=== PATIENT | male | born 1930 | race Caucasian/White ===

== ENCOUNTER 2018-09-30 22:40 | Emergency (ER) | payer MEDICARE ==
[2018-09-30] MEDS ORDERED: SODIUM CHLORIDE 0.9% 100ML 100 ML IVPB ONE (22:50)
[2018-09-30] MEDS ORDERED: diltiaZEM DRIP 125 MG/25 ML VIAL IVPB ONE (22:50)
[2018-09-30] MEDS ORDERED: VECURONIUM BROMIDE 10 MG VIAL IV ONE ×2 (22:55→23:40)
[2018-09-30] MEDS ORDERED: WATER FOR INJ 10 ML VIAL INJ ONE (22:56)
[2018-09-30] MEDS ORDERED: diltiaZEM DRIP 125 MG in SODIUM CHLORIDE 0.9% 100ML 100 ML IVPB SCH (23:00)
--- NOTE | 2018-09-30 23:04 | RAD ---
EXAM DESCRIPTION: Chest,1 View CLINICAL HISTORY: 87 years Male cardiac arrest COMPARISON: None. FINDINGS: Cardiac enlargement. Endotracheal tube above the level the daya. There are bilateral infiltrates suggesting edema. Small effusions may be present. Linear area over the mid chest on the left may reflect a skinfold. This is not thought to represent a pneumothorax as lung markings extend beyond this. Post surgical changes with median sternotomy wires. IMPRESSION: Cardiac enlargement Areas of infiltrate bilaterally suggesting mild edema with small effusions Linear area over the left midlung field of uncertain clinical significance. 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
[2018-09-30] MEDS ORDERED: SODIUM CHLORIDE 0.9% 1000ML 1,000 ML ONE (23:18)
--- NOTE | 2018-09-30 23:18 | ED.PDOC ---
History of Present Illness - General Chief Complaint: Unresponsive Stated Complaint: post cardiac arrest Time Seen by Provider: 09/30/18 22:50 Source: EMS Exam Limitations: clinical condition - History of Present Illness Initial Comments: PT WITH DEMENTIA FOUND UNRESPONSIVE. EMS ARRIVED TO FIND PT PULSELESS. INTUBATED, CPR AND D/C CARDIOVERSION FOR VFIB. PT HAD EPI ARRIVED WITH QUAKER OF PULSE. NO FAMILY HERE, NO OLD RECORDS. Timing/Duration: other - WITNESSED Allergies/Adverse Reactions: Allergies UNOBTAINABLE Allergy (Verified 09/30/18 22:45) Review of Systems - Review of Systems Constitutional: States: see HPI EENTM: States: see HPI Respiratory: States: see HPI Cardiology: States: see HPI Gastrointestinal/Abdominal: States: see HPI Genitourinary: States: see HPI Musculoskeletal: States: see HPI Skin: States: see HPI Neurological: States: see HPI Endocrine: States: see HPI Hematologic/Lymphatic: States: see HPI Unable to Obtain Due To: dementia, intubated Past Medical History (General) - Patient Medical History Hx Dementia: Yes Family Medical History - Family History Mother Family History: Unknown Living Status: Unknown Physical Exam - Physical Exam General Appearance: Frail, Other - INTUBATED, UNRESPONSIVE Eye Exam: bilateral normal - 2MM REACTIVE Ears, Nose, Throat: normal ENT inspection, other - ETT IN PLACE Neck: non-tender, full range of motion, supple Respiratory: lungs clear, other - BETO BS WITH BAGGING. Cardiovascular/Chest: tachycardia, irregularly irregular Peripheral Pulses: radial,right: 1+, femoral,right: 1+ Gastrointestinal/Abdominal: soft, no organomegaly Extremity: non-tender, normal inspection Neurologic: other - GCS 3 Skin Exam: normal color, other - COOL Lymphatic: no adenopathy Progress - Progress Progress: 09/30/18 23:21 PT IN AFIB WITH RVR VENT RATE 170'S BP 129 GAVE CARDIZEM BOLUS NOW PULSE 117, BP 90. HAVE STARTED FLUIDS AND WILL CONTINUE W/U. FAMILY REPORTEDLY ON THE WAY FROM [place] 09/30/18 23:33 FAMILY INFORMED OF THE PATIENT'S CONDITION AND NEED FOR TRANSFER. THEY ARE DISCUSSING AMONGST THEMSELVES. 09/30/18 23:59 PULSE TACHY, BUT STABLE, STILL IN AFIB. INITIAL ABG SHOWS METABOLIC ACIDOSIS, REPEAT SHOWS NORMALIZATION WILL LEAVE CURRENT VENT SETTINGS. FAMILY DESIRES TRANSFER TO . D/W Jose CHAMPAGNE ACCEPTS PT IN TRANSFER. PAGED CARDIOLOGY 10/01/18 00:13 D/W DR FERMIN, RECOMMENDS DIG FOR RATE CONTROL AND NO ANTICOAGULATION AT THIS POINT. - EKG/XRAY/CT EKG: Atrial, Fibrillation, RVR - RATE 170, LAD, , nonspecific ST T wave Chg - NAIP, NO OLD FOR COMPARISON XRAY: chest - ETT IN PLACE, IFEANYI, POST SURGICAL CHANGES IN CHEST. Departure - Departure Clinical Impression: Cardiorespiratory arrest Atrial fibrillation Qualifiers: Atrial fibrillation type: persistent Qualified Code(s): I48.1 - Persistent atrial fibrillation CAD (coronary artery disease) Qualifiers: Coronary Disease-Associated Artery/Lesion type: unspecified vessel or lesion type [place] vs. transplanted heart: [place] heart Associated angina: angina presence unspecified Qualified Code(s): I25.10 - Atherosclerotic heart disease of [place] coronary artery without angina pectoris Dementia Qualifiers: Dementia type: unspecified type Dementia behavioral disturbance: without behavioral disturbance Qualified Code(s): F03.90 - Unspecified dementia without behavioral disturbance Leukocytosis Qualifiers: Leukocytosis type: unspecified Qualified Code(s): D72.829 - Elevated white blood cell count, unspecified Time of Disposition: 00:26 Disposition: Transfer to Hospital Condition: Serious Departure Forms: ED Discharge - Pt. Copy, Patient Portal Self Enrollment Critical Care Note - Critical Care Note Total Time (mins): 85 Comments: EVENT: CARDIAO/RESP ARREST, AFIB WITH RVR FINDINGS: PULSELESS, APNEA, PULSE 170'S INTERVENTION: CPR, INTUBATION, CARDIZEM, DIGOXIN, RESP SUPPORT, CONSULTATION, ARRANGEMENT FOR TRANSFER TO TERTIARY CARE SYSTEMS AT RISK: CARDIOVASCULAR, RESP, TIME: CHARTING, 15MIN, REVIEW LAB,XRAY, EKG,OLD RECORDS, 15 MINUTES, D/W FAMILY 5 MINUTES, CONSULTATION 10 MINUTES, DIRECT PT CARE, 30 MINUTES, CHARTING, 10 MINUTES. Transfer to Outside Facility - Transfer Information Accepting Provider:: DR Jose CHAMPAGNE Accepting Facility: [facility] Reason for Transfer: ICU
[2018-09-30 23:32] VITALS: TEMP 96.4
[2018-09-30] MEDS ORDERED: CEFEPIME 2 GM in SODIUM CHL 0.9% 50ML MIN-BAG+ 50 ML IVPB ONE (23:47)
[2018-10-01] VITALS: BP 99/64
[2018-10-01] MEDS ORDERED: CEFEPIME 2 GM VIAL ONE (00:14)
[2018-10-01] MEDS ORDERED: SODIUM CHL 0.9% 50ML MIN-BAG+ 50 ML IVPB ONE (00:15)
[2018-10-01] MEDS ORDERED: DIGOXIN INJ 0.5 MG/2 ML AMP IV ONE (00:15)
[2018-10-01 00:44] VITALS: O2SAT 99
== END 2018-10-01 00:20 | disposition short-term general hospital (02) ==
LOC: ER 22:40
DX: I46.9 Cardiac arrest, cause unspecified (principal); I48.1 Persistent atrial fibrillation; I25.10 Atherosclerotic heart disease of native coronary artery without angina pectoris; F03.90 Unspecified dementia, unspecified severity, without behavioral disturbance, psychotic disturbance, mood disturbance, and anxiety; D72.829 Elevated white blood cell count, unspecified
CPT/HCPCS: 36415; 36416; 36600; 71045; 80048; 82550; 82553; 82803; 82805; 82948; 83605; 83880; 84484; 85025; 85610; 85730; 87040; 93005; 94002; 94770; A4216; J0692; J1160; J7030; J7050

== ENCOUNTER 2018-10-31 10:45 | Inpatient (IN) | payer MEDICARE ==
[2018-10-31] MEDS ORDERED: ASPIRIN (CHEWABLE) 81 MG TAB PO ONE (10:52)
--- NOTE | 2018-10-31 11:31 | ED.PDOC ---
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 He says that it was pressure like with radiation to the left arm. It has since mostly resolved but he says he still senses that it is "there". Denies associated symptoms. He has an extensive cardiac history which includes CABG, PTCA, and a cardiac arrest one month ago. Currently no other complaints. Timing/Duration: 4-6 hours Severity: moderate Improving Factors: nothing Worsening Factors: nothing Associated Symptoms: denies symptoms Allergies/Adverse Reactions: Allergies NO KNOWN ALLERGY Allergy (Verified 10/31/18 10:52) Home Medications: Ambulatory Orders Amiodarone HCl 200 mg PO BID 10/31/18 Aspirin [Aspirin Adult Low Dose] 81 mg PO DAILY 10/31/18 Atorvastatin Calcium [Lipitor] 10 mg PO DAILY 10/31/18 Clopidogrel Bisulfate 75 mg PO DAILY 10/31/18 Erythromycin (Ophth) [Erythromycin] 5 mg OP TID 10/31/18 Ferrous Sulfate 325 mg PO BID 10/31/18 Furosemide 40 mg PO DAILY 10/31/18 Metoprolol Succinate [Metoprolol Succinate ER] 25 mg PO DAILY 10/31/18 Nitroglycerin [Nitrostat] 0.4 mg SL DAILY 10/31/18 Polyethylene Glycol 3350 [Miralax] 17 gm PO DAILY PRN 10/31/18 Potassium Chloride [K-Tab] 20 meq PO DAILY 10/31/18 Review of Systems - Review of Systems Constitutional: States: no symptoms reported EENTM: States: no symptoms reported Respiratory: States: no symptoms reported Cardiology: States: see HPI Gastrointestinal/Abdominal: States: no symptoms reported Genitourinary: States: no symptoms reported Musculoskeletal: States: no symptoms reported Skin: States: no symptoms reported Neurological: States: no symptoms reported Endocrine: States: no symptoms reported Hematologic/Lymphatic: States: no symptoms reported Past Medical History (General) - Patient Medical History Hx Dementia: Yes Hx Congestive Heart Failure: - unknown Hx Diabetes: - unknown - Social History Hx Tobacco Use: No - unknown unable to obtain information Family Medical History - Family History Mother Family History: Unknown Living Status: Unknown Physical Exam - Physical Exam General Appearance: Alert Eye Exam: bilateral normal Ears, Nose, Throat: normal ENT inspection Neck: non-tender, full range of motion, supple Respiratory: lungs clear, normal breath sounds Cardiovascular/Chest: normal peripheral pulses, regular rate, rhythm, no edema Gastrointestinal/Abdominal: normal bowel sounds, non tender, soft Back Exam: normal inspection, no CVA tenderness Extremity: normal range of motion, non-tender, normal inspection Neurologic: no motor/sensory deficits, alert, normal mood/affect, oriented x 3 Skin Exam: normal color Lymphatic: no adenopathy Progress - Progress Progress: 10/31/18 15:10 Laboratory Tests 10/31/18 10/31/18 10/31/18 11:00 11:00 11:00 WBC 4.9 RBC 2.86 L Hgb 10.1 L Hct 31.3 L MCV 109.5 H MCH 35.3 H MCHC 32.3 L RDW 16.5 H Plt Count 154 MPV 9.8 Absolute Neuts (auto) 3.40 Absolute Lymphs (auto) 0.50 L Absolute Monos (auto) 0.80 Absolute Eos (auto) 0.10 Absolute Basos (auto) 0.00 Neutrophils % 69.4 Lymphocytes % 10.7 L Monocytes % 16.7 H Eosinophils % 2.2 Basophils % 1.0 Normal RBC Morphology Stain quality accept PT 10.5 INR 1.05 PTT (SP) 25.1 Sodium 138 Potassium 3.8 Chloride 101 Carbon Dioxide 27 Anion Gap 13.8 BUN 20 H Creatinine 1.82 H BUN/Creatinine Ratio 11.0 Random Glucose 99 Serum Osmolality 278.3 Calcium 8.2 L Magnesium 2.0 Total Bilirubin 1.1 H AST 17 ALT 12 Alkaline Phosphatase 132 H Creatine Kinase 35 L CK-MB (CK-2) 2.1 CK-MB (CK-2) % Not Reportable Troponin I 0.03 B-Natriuretic Peptide Serum Total Protein 6.4 Albumin 3.0 L Globulin 3.4 Albumin/Globulin Ratio 0.9 L 10/31/18 10/31/18 12:42 14:15 WBC RBC Hgb Hct MCV MCH MCHC RDW Plt Count MPV Absolute Neuts (auto) Absolute Lymphs (auto) Absolute Monos (auto) Absolute Eos (auto) Absolute Basos (auto) Neutrophils % Lymphocytes % Monocytes % Eosinophils % Basophils % Normal RBC Morphology PT INR PTT (SP) Sodium Potassium Chloride Carbon Dioxide Anion Gap BUN Creatinine BUN/Creatinine Ratio Random Glucose Serum Osmolality Calcium Magnesium Total Bilirubin AST ALT Alkaline Phosphatase Creatine Kinase CK-MB (CK-2) CK-MB (CK-2) % Troponin I 0.03 B-Natriuretic Peptide 2000.0 H* Serum Total Protein Albumin Globulin Albumin/Globulin Ratio EKG showed T wave inversions at V2-V6. These did not change with a follow up EKG in 4 hours. No previous available for comparison. Troponin x 2 negative. Patient remained pain free. He was admitted to observation. 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 Usman Zaidi admitting. 10/31/18 15:35 Departure - Departure Clinical Impression: Chest pain Disposition: Admit Patient Condition: Fair Departure Forms: ED Discharge - Pt. Copy, Patient Portal Self Enrollment Instructions: DI for Chest Pain Diet: other - as per hospitalist Activity: other - as per hospitalist Home Medications: Ambulatory Orders Amiodarone HCl 200 mg PO BID 10/31/18 Aspirin [Aspirin Adult Low Dose] 81 mg PO DAILY 10/31/18 Atorvastatin Calcium [Lipitor] 10 mg PO DAILY 10/31/18 Clopidogrel Bisulfate 75 mg PO DAILY 10/31/18 Erythromycin (Ophth) [Erythromycin] 5 mg OP TID 10/31/18 Ferrous Sulfate 325 mg PO BID 10/31/18 Furosemide 40 mg PO DAILY 10/31/18 Metoprolol Succinate [Metoprolol Succinate ER] 25 mg PO DAILY 10/31/18 Nitroglycerin [Nitrostat] 0.4 mg SL DAILY 10/31/18 Polyethylene Glycol 3350 [Miralax] 17 gm PO DAILY PRN 10/31/18 Potassium Chloride [K-Tab] 20 meq PO DAILY 10/31/18 Critical Care Note - Critical Care Note Total Time (mins): 180 Decision To Admit - Decistion To Admit Decision to Admit Reason: Medical Nature Decision to Admit Date: 10/31/18 Decision to Admit Time: 15:38
--- NOTE | 2018-10-31 11:57 | RAD ---
Portable chest INDICATION: Chest pain COMPARISON: September 30 IMPRESSION: Mild cardiomegaly without failure. Prior median sternotomy for CABG. Pleural thickening/fluid increased bibasilar. No alveolar edema. No focal consolidation. Electronically signed by: Jagjit Mello MD 10/31/2018 11:54 AM CDT
--- NOTE | 2018-10-31 16:23 | HP ---
SUPERVISING PHYSICIAN: Isaak Kincaid MD CHIEF COMPLAINT: Shortness of breath. HISTORY OF PRESENT ILLNESS: Mr. Kate is an 88 year-old male patient who has a history of a recent cardiac arrest secondary to Torsades arrhythmia in the previous month. He was treated at [facility] after he coded at [facility] on 09/30/18 and started on amiodarone after he was found to have Torsade's. He was discharged home and spent 3 weeks in [facility] and this past Saturday was discharged to [facility]. His family endorses that within a day of discharge from [facility] he started coughing a purulent looking sputum but without any fevers but was having an increase in shortness of breath and coarse breath sounds that were audible without a stethoscope. Today, the family and patient endorses that he was having some chest pains that he was describing substernal, started approximately 5 hours prior to arrival to the Emergency Room. He described it as pressure with some radiation to his left arm but his symptoms have essentially resolved prior to going to the Emergency Room. He does have a history of a previous coronary artery bypass graft and multiple stints and again, cardiac arrest within the last month. He was also reportedly on a ventilator for approximately 5 days while at [facility]. Workup in the Emergency Room showed that his CBC was showing a white count of 4,900 but his hemoglobin was 10.1, hematocrit 31.1 and RBCs indicated a macrocytosis. Platelet count was was negative. Differential was without a left shift. Coagulation studies showed normal PT/PTT. Initial chemistries showed normal electrolytes, BUN 20, creatinine 1.82, calcium 8.2, glucose 99, total bilirubin was slightly elevated at 1.1. All other liver functions were within normal limits. He had 2 sets of troponin prior to admission that were both 0.03. He had a BNP of 2,000 and his daughter endorses that since his cardiac rarest, his BNP has been hovering around 4,000 and his primary care physician, Dr. Foster, has been working with his medications and 2,000 seems to be currently his baseline where he is asymptomatic. Radiographic studies showed mild cardiomegaly without any failure with some pleural thickening and increased bibasilar presentation with no edema, no obvious focal consolidation. Vital signs showed on admission that he was afebrile there was temperature of 96, pulse 57, blood pressure 111/54, saturation 94% on 2 liters nasal cannula. Given the patient's significant underlying history, previous cardiac arrest and recent hospitalization and current symptoms, the patient is going to be admitted for rule out of acute coronary syndrome as well as concerns for developing right-sided lower pneumonia, probably healthcare acquired given that he has been in the hospital in an long-term care facility within the last month. He was admitted in stable condition. PAST MEDICAL HISTORY: 1. Coronary artery bypass graft x4 vessels in his 60s. 2. Multiple stints with a failed stint placement of LAD in the last 3 years. 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 5. Systolic congestive heart failure with ejection fraction of 25% on last echocardiogram in September on previous hospitalization status post cardiac arrest. 6. Chronic conjunctivitis bilaterally. PAST SURGICAL HISTORY: 1. Coronary artery bypass graft x4. 2. Appendectomy. 3. Femoral stent. 4. Left nephrectomy. 5. Cholecystectomy. CURRENT MEDICATIONS: 1. Potassium chloride 20 mEq daily. 2. Nitroglycerin 0.4 mg as needed. 3. Lipitor 10 mg daily. 4. Miralax 17 grams daily as needed. 5. Metoprolol 25 mg daily. 6. Ferrous sulfate 325 mg b.i.d. 7. Lasix 40 mg daily. 8. Erythromycin 5 mg. 9. Ophthalmic solution to both eyes t.i.d. 10. Plavix 75 mg daily. 11. Aspirin 81 mg daily. 12. Amiodarone 200 mg b.i.d. ALLERGIES: No known drug allergies. HEALTHCARE PROVIDER: Dr. Obando, Cardiology PRIMARY CARE PHYSICIAN: Dr. Foster CODE STATUS: Do Not Resuscitate. FAMILY HISTORY: Mother and father history is unknown. He has a half-sister that is healthy. He has 3 children, all healthy, with one being secondary to a motor vehicle accident. SOCIAL HISTORY: The patient is , lives at [facility]. He does have a history of smoking for 10 years but quit in his 30s. He was in the [employer] for 2 years. He notes that he drinks beer on a rare occasion. He denies any illicit drug use. REVIEW OF SYSTEMS: CONSTITUTIONAL: Positive for generalized increasing weakness and fatigue. Denies any fever or chills or unintentional weight loss. HEENT: Negative for nasal congestion, earache, sore throat, vision changes, headaches. RESPIRATORY: Positive for cough, purulent production of sputum and increasing dyspnea. CARDIAC: Positive for chest pain, left substernal, with radiation to the left arm 5 hours prior to arrival. Negative for palpitations or syncopal episodes. Positive for Torsades but currently on amiodarone. GASTROINTESTINAL: Negative for nausea, vomiting, constipation or abdominal pain. Positive for one episode of diarrhea within the last 3 days. GENITOURINARY: Positive for dysuria but negative for hematuria or polyuria. MUSCULOSKELETAL: Generalized weakness, no joint pain, negative for edema. NEUROLOGIC: Negative for ataxia, seizure activity, syncopal episodes. SKIN: Positive for mild erythema, rash to perianal area and rectum. Negative for lesions or sores. PHYSICAL EXAMINATION: VITAL SIGNS: Temperature on admission 96, pulse 57, blood pressure 115/54, respirations 24, saturation 94% on 2 liters nasal cannula. On admission to the medical/surgical floor, the patient was showing a blood pressure of 129/59 with respirations of 20, saturation 100% on room air. Heart rate 57. Admission weight 61.7 kg. GENERAL: The patient does appear ill, tired and frail but shows to be comfortable and in no acute distress. He is alert. HEENT: Tympanic membranes are clear bilaterally. Oropharynx is pink, moist without any lesions. Bilateral conjunctivitis is noted which is chronic. No nasal congestion. NECK: Supple, non-tender, full range of motion. CHEST: Lung sounds are notable for rhonchi heard on the right middle lobe, more prominent to the lateral posterior aspect with diminished sounds toward the base. Left is fairly clear, just diminished towards the base, no rhonchi noted. No rales or wheezes. CARDIOVASCULAR: Heart regular rate and rhythm without appreciable murmurs, rubs, or gallops. ABDOMEN: Soft, non-tender, positive bowel sounds. EXTREMITIES: Without any cyanosis, clubbing, or edema. NEUROLOGIC: He was alert and oriented x 3. SKIN: Warm, pink and dry. LABORATORY: White count 4,900, platelet count showed to be without a left shift, hemoglobin 10.1, hematocrit 31.1 with a macrocytic RBC indices. Coagulation studies showed normal PT/PTT. Chemistries showed normal electrolytes, potassium 3.8, BUN 20, creatinine 1.82, magnesium 2, lactic acid was pending. Liver functions showed just a slight bilirubin at 1.1, calcium 8.2. All other liver functions were within normal limits. Troponin x2 prior to admission was 0.03. BNP showing to be elevated at 2,000. B12, serum folate, TSH, C-reactive protein all pending. MICROBIOLOGY: Blood cultures pending. Influenza A and B by PCR was negative. RADIOLOGY: Chest x-ray per radiology interpretation showed mild cardiomegaly without failure with the pleural thickening/fluid, increased bibasilar presentation, no alveolar edema, no focal consolidation. Review of the film by myself to me shows early consolidation in the right middle lobe, however, this is on a single-view chest. 12-lead EKG shows a sinus rhythm with T-wave inversion in the lateral leads V5 through V6. No ST elevation noted but no comparison available. There was a repeat EKG from admission with no acute changes between the 2 every 3 hours. ASSESSMENT: 1. Chest pain requiring rule out for acute coronary syndrome with the patient having a significant history of recent cardiac arrest due to arrhythmia in September of this year, currently on amiodarone showing stable hemodynamics and pain-free prior to admission with normal troponins x2. EKG shows some T-wave inversion laterally but no comparison available. 2. Right middle lobe pneumonia likely healthcare acquired possibly contributing to #1 with cultures pending. 3. History of multiple cardiac stints including failure to LAD within the last 3 years. 4. 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 5. Congestive heart failure, systolic, etiology with last echocardiogram showing ejection fraction of 25% in September 2018 with elevated BNP on admission with the patient's history showing elevated BNP up to 4,000. 6. Renal insufficiency likely prerenal azotemia from some dehydration. 7. Anemia with macrocytosis presentation, probably B12 insufficiency with workup pending. PLAN: The patient is going to be admitted for both cardiac monitoring to rule out acute coronary syndrome and initially some treatment of probable healthcare acquired pneumonia involving the right lower lobe. The patient is advanced in age and has been recently in the hospital intubated within the last 30 days and in a long-term care facility with multiple risk factors with concerns for possible Pseudomonas and gram positive as the etiology of developing pneumonia. Will collect sputum cultures and await culture results before starting antibiotic therapy. Will initiate antibiotics and renal dose of Cefepime and vancomycin per pharmacy protocol. Will hold off on Levaquin or Macrobid given his recent cardiac arrest secondary to arrhythmias and the patient being on amiodarone. Will go ahead and put him on some general fluids to see if we can correct his underlying renal insufficiency. Will plan to repeat his chest x-ray and labs in the morning. Will also have him on aggressive pulmonary hygiene with Xopenex breathing treatments. He will be on DVT prophylaxis with Lovenox per ACS protocol until we can completely rule out acute coronary syndrome. Will do 65 mg, 1 mg per kg, until we can completely rule out possible non-STEMI. Will repeat cardiac enzymes every 6 hours and then in the morning as well as EKG in the morning. Will also get a physical therapy consultation as the patient has been in the hospital multiple times and ensure that he is safe to return back to [facility] once found able to transition back to outpatient management. Will anticipate length of stay to be at least 2 to 3 days and until the patient can transition back to outpatient management, will continue to monitor and treat as needed. #[id number] MTDD
[2018-10-31] MEDS ORDERED: NITROGLYCERIN 0.4 MG 25 EA TAB SL PRN (16:33)
[2018-10-31] MEDS ORDERED: MORPHINE SULFATE INJ 10 MG/ML VIAL IV PRN (16:33)
[2018-10-31] MEDS ORDERED: ACETAMINOPHEN 325 MG TAB PO PRN (16:33)
[2018-10-31] MEDS ORDERED: ENOXAPARIN SODIUM 80 MG/0.8 ML SYG SUBCU ONE (19:50)
[2018-10-31] MEDS ORDERED: SODIUM CHL 0.9% 50ML MIN-BAG+ 50 ML IVPB ONE (19:50)
[2018-10-31] MEDS ORDERED: FERROUS GLUCONATE 325 MG TAB ONE (19:51)
[2018-10-31] MEDS ORDERED: CEFEPIME 2 GM VIAL ONE (19:51)
[2018-10-31] MEDS: CEFEPIME 2 GM in SODIUM CHL 0.9% 50ML MIN-BAG+ 50 ML IVPB SCH (20:04)
[2018-10-31] MEDS: AMIODARONE HCL 200 MG TAB PO SCH (20:05)
[2018-10-31] MEDS ORDERED: FERROUS SULFATE 325 MG TAB ONE (20:06)
[2018-10-31] MEDS: SODIUM CHLORIDE 0.9% (FLUSH) 10 ML SYG IV SCH (20:10)
[2018-10-31] MEDS: LEVALBUTEROL NEBS 1.25 MG/3 ML VIAL NEB SCH (20:40)
[2018-10-31] MEDS ORDERED: NON-FORMULARY MEDICATION 1 EA MIS (Ferrous Sulfate [Ferrous Sulfate] 325 MG) PO SCH (21:00)
[2018-10-31] MEDS: KCL 20MEQ/D5 1/2NS 1,000 ML IVS PRN (21:13)
[2018-10-31] MEDS: IV SET AND CAP CHANGE INJ INJ SCH (21:14)
[2018-10-31] MEDS ORDERED: VANCOMYCIN HCL INJ 1,000 MG in SODIUM CHLORIDE 0.9% 250ML 250 ML IVPB ONE (22:04)
[2018-10-31] MEDS ORDERED: SODIUM CHLORIDE 0.9% 250ML 250 ML ONE (22:19)
[2018-10-31] MEDS ORDERED: VANCOMYCIN HCL INJ 1,000 MG VIAL IVPB ONE (22:19)
[2018-11-01] MEDS: LEVALBUTEROL NEBS 1.25 MG/3 ML VIAL NEB SCH ×4 (00:11→23:00)
[2018-11-01] MEDS ORDERED: ENOXAPARIN SODIUM 80 MG/0.8 ML SYG SUBCU ONE (05:40)
[2018-11-01] MEDS: PANTOPRAZOLE SODIUM IV 40 MG VIAL IV SCH (06:16)
--- NOTE | 2018-11-01 06:42 | RAD ---
EXAM DESCRIPTION: Chest,1 View CLINICAL HISTORY: 88 years Male chf ; rt sided pneumonia COMPARISON: Portable chest 10/31/2018 TECHNIQUE: Portable AP view of the chest is obtained. Heart: Allowing for magnification factors related to AP portable technique , the heart is mildly enlarged status post coronary artery bypass surgery. Vasculature: [] There is no evidence of aortic aneurysm or acute findings. The pulmonary vascularity is normal. Mediastinum: Unremarkable otherwise. No evidence of mass or adenopathy. Lungs: Suspect compressive atelectasis secondary to the small pleural effusions. Pneumonia not excludable. Also noted is slight increase in the groundglass opacification in the right mid to lower lung laterally as well as in the left mid and upper lung. Pleural effusions: There are small bilateral pleural effusions again noted and unchanged. There are no pneumothoraces. Osseous structures: The osseous structures show no discernible acute fractures or areas of osseous destruction or blastic change, although assessment of the spine is limited by underpenetration. There are sternal wires consistent with previous sternotomy incision. Tubes and catheters: None Upper abdomen: No acute findings. Chest wall: Unremarkable. IMPRESSION: Cardiomegaly and small bilateral pleural effusions appear largely unchanged suggests fluid overload/congestive heart failure. Developing groundglass opacification in the left upper and mid lung and progression in the right mid to lower lung laterally probably reflects edema and slight worsening of CHF. Pneumonia/atelectasis is not excludable. Remainder of findings as described above. Electronically signed by: Charlene Holland MD 11/01/2018 6:39 AM CDT
[2018-11-01] MEDS ORDERED: SODIUM CHL 0.9% 50ML MIN-BAG+ 50 ML IVPB ONE (08:25)
[2018-11-01] MEDS ORDERED: CEFEPIME 2 GM VIAL ONE (08:26)
[2018-11-01] MEDS: AMIODARONE HCL 200 MG TAB PO SCH ×2 (08:40→20:46)
[2018-11-01] MEDS: FOLIC ACID 1 MG TAB PO SCH (08:40)
[2018-11-01] MEDS: METOPROLOL SUCCINATE XL 25 MG TAB PO SCH (08:41)
[2018-11-01] MEDS: CEFEPIME 2 GM in SODIUM CHL 0.9% 50ML MIN-BAG+ 50 ML IVPB SCH (08:41)
[2018-11-01] MEDS: POTASSIUM CHLORIDE 20 MEQ TAB PO SCH (08:41)
[2018-11-01] MEDS ORDERED: VANCOMYCIN PER PHARMACY IVPB SCH (09:00)
[2018-11-01] MEDS ORDERED: FUROSEMIDE 40 MG TAB PO SCH (09:00)
[2018-11-01] MEDS ORDERED: FUROSEMIDE INJ 100 MG/10 ML VIAL IV SCH (09:00)
[2018-11-01] MEDS ORDERED: ASPIRIN TABLET 325 MG TAB PO SCH (09:00)
[2018-11-01] MEDS: ERYTHROMYCIN OPHTH OINT 1 APPLIC RIGHT_EYE SCH ×4 (10:29→20:46)
[2018-11-01] MEDS: FERROUS SULFATE 325 MG TAB PO SCH ×2 (10:30→17:59)
[2018-11-01] MEDS: SODIUM CHLORIDE 0.9% (FLUSH) 10 ML SYG IV SCH (10:30)
[2018-11-01] MEDS: ASPIRIN (ENTERIC COATED) 81 MG TAB PO SCH (11:35)
[2018-11-01] MEDS: CLOPIDOGREL 75 MG TAB PO SCH (11:35)
[2018-11-01] MEDS ORDERED: methylPREDNISolone SODIUM SUC 125 MG/2 ML VIAL IV ONE (11:40)
[2018-11-01] MEDS: KCL 20MEQ/D5 1/2NS 1,000 ML IVS PRN (14:00)
--- NOTE | 2018-11-01 17:44 | PN ---
DATE: 11/01/18 SUPERVISING PHYSICIAN: Isaak Kincaid M.D. SUBJECTIVE: The patient feels like he is just a little bit better, but he is still tired. He has had continued shortness of breath through the night but it is not as severe as it was prior to admission. He has continued with a productive cough. He has been afebrile overnight. OBJECTIVE: VITAL SIGNS: Temperature 98, pulse 59, blood pressure 112/60, respirations 16, satting 98% on 2 liters nasal cannula. I's and O's show a positive balance of 380. Weight is down slightly from admission, it is at 59.8 kg. GENERAL: The patient continues to look tired but is alert and much more talkative than yesterday. CHEST: Lung sounds on the right continue to be coarse with some rhonchi heard towards the base, left fairly clear, just slightly diminished towards the base. Just very faint inspiratory and expiratory wheezing is noted in the right upper apices. HEART: Regular rate and rhythm. ABDOMEN: Soft, non-tender. Positive bowel sounds. EXTREMITIES: Without any edema. NEUROLOGIC: He is alert and oriented times three. LABORATORY: Hemoglobin shows to be at 9, hematocrit 27.9 with white count 5,400. Differential continues to be without a left shift. Chemistries show normal electrolytes, BUN 22, creatinine is slightly improved to 1.54. Troponin repeated last night was 0.03 and this morning was 0.02. TSH was 4. Vitamin B12 is 210. Serum folate 8.25. Urine showed to be within normal limits. MICROBIOLOGY: Sputum culture is pending. Blood culture is pending. RADIOLOGY: Repeat chest x-ray, single view chest this morning per radiology interpretation shows compressive atelectasis secondary to small pleural effusion. Pneumonia not excludable. Also there is note of slight increase in ground glass opacification in the right mid to lower lung laterally as well as the right mid left upper lung suggesting slight fluid overload, congestive failure and slight worsening of CHF. Pneumonia and atelectasis is not excludable. ASSESSMENT: 1. Chest pain rule out with normal troponins. No significant change on EKG from admission felt to be chronic. No signs of ischemic or acute injury. Likely some component due to slight exacerbation of congestive heart failure. 2. Right middle lobe pneumonia likely healthcare acquired and contributing to #1 with cultures pending with the patient on parenteral antibiotics showing some slight improvement. 3. History of multiple cardiac stents to LAD within the last 3 years. 4. 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 5. 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 6. Renal insufficiency likely prerenal azotemia from some dehydration. 7. Macrocytic anemia, likely B12 deficiency with a low normal B12 level. PLAN: Will continue with antibiotic coverage with Cefepime and I have added vancomycin per Pharmacy protocol. Of course will dose those per renal function. I plan to give him one single dose of Solu-Medrol at 60 due to his wheezing and see if this will help open him up some. He continues on aggressive pulmonary hygiene. Will await Physical Therapy assessment. Will try some IV Lasix this morning to see if we can actually pull a little bit excess fluid off, although I am not convinced that this is totally the case, that it is more underlying pneumonia process. At this point there is no evidence of acute coronary syndrome. Will continue with cardiac monitoring closely as all of his troponins have been negative. Will take him back to a prophylactic dose of Lovenox for DVT. Will resume his home medications. Will plan to repeat labs in the morning and continue with current treatment. Anticipate at least another 24 to 48 hours of hospitalization. Until he can transition back to outpatient management will continue to monitor and treat as needed. [facility][id number] [facility]
[2018-11-01] MEDS ORDERED: methylPREDNISolone SODIUM SUC 125 MG/2 ML VIAL ONE (17:50)
[2018-11-01] MEDS ORDERED: VANCOMYCIN HCL INJ 1,000 MG VIAL IVPB ONE (20:09)
[2018-11-01] MEDS ORDERED: SODIUM CHLORIDE 0.9% 250ML 250 ML ONE (20:09)
[2018-11-01] MEDS ORDERED: SODIUM CHLORIDE 0.9% 1000ML 1,000 ML ONE (20:34)
[2018-11-01] MEDS ORDERED: SODIUM CHLORIDE 0.9% 500ML 500 ML IVS ONE (20:40)
[2018-11-01] MEDS ORDERED: NITROGLYCERIN 0.2 MG/HR PATCH TD ONE (20:43)
[2018-11-01] MEDS: ATORVASTATIN 10 MG TAB PO SCH (20:45)
[2018-11-01] MEDS ORDERED: ENOXAPARIN SODIUM 80 MG/0.8 ML SYG SUBCU SCH (21:00)
[2018-11-01] MEDS: VANCOMYCIN HCL INJ 750 MG in SODIUM CHLORIDE 0.9% 250ML 250 ML IVPB SCH (21:31)
[2018-11-02] MEDS: PANTOPRAZOLE SODIUM IV 40 MG VIAL IV SCH (05:42)
--- NOTE | 2018-11-02 07:12 | RAD ---
EXAM DESCRIPTION: Chest,2 Views CLINICAL HISTORY:88 years Male, pneumonia; chf Comparison: November 01, 2018 FINDINGS: Unchanged small bilateral pleural effusions. Improved lung opacities with residual bibasilar opacities representing pulmonary edema, atelectasis or pneumonia. Unchanged enlarged cardiac silhouette. No pneumothorax. Electronically signed by: Se Tellez MD 11/02/2018 7:09 AM CDT
[2018-11-02] MEDS: FERROUS SULFATE 325 MG TAB PO SCH ×2 (07:44→18:36)
[2018-11-02] MEDS: POTASSIUM CHLORIDE 20 MEQ TAB PO SCH (07:44)
[2018-11-02] MEDS ORDERED: SODIUM CHL 0.9% 50ML MIN-BAG+ 50 ML IVPB ONE (07:55)
[2018-11-02] MEDS: LEVALBUTEROL NEBS 1.25 MG/3 ML VIAL NEB SCH ×2 (07:56→16:10)
[2018-11-02] MEDS ORDERED: CEFEPIME 2 GM VIAL ONE (07:56)
[2018-11-02] MEDS: ASPIRIN (ENTERIC COATED) 81 MG TAB PO SCH (08:42)
[2018-11-02] MEDS: FOLIC ACID 1 MG TAB PO SCH (08:42)
[2018-11-02] MEDS: ENOXAPARIN SODIUM 30 MG/0.3 ML SYG SUBCU SCH (08:42)
[2018-11-02] MEDS: METOPROLOL SUCCINATE XL 25 MG TAB PO SCH (08:42)
[2018-11-02] MEDS: AMIODARONE HCL 200 MG TAB PO SCH ×2 (08:42→20:47)
[2018-11-02] MEDS: CLOPIDOGREL 75 MG TAB PO SCH (08:42)
[2018-11-02] MEDS: ERYTHROMYCIN OPHTH OINT 1 APPLIC RIGHT_EYE SCH (08:43)
[2018-11-02] MEDS: CEFEPIME 2 GM in SODIUM CHL 0.9% 50ML MIN-BAG+ 50 ML IVPB SCH (08:43)
[2018-11-02] MEDS: KCL 20MEQ/D5 1/2NS 1,000 ML IVS PRN (08:45)
[2018-11-02] MEDS ORDERED: MINERAL OIL/PETROLATUM OPHTH OINT 1 APPLIC UD BOTH_EYES PRN (10:42)
[2018-11-02] MEDS: GENTAMICIN 0.3% OPHTH SOL 1 DROP BOTH_EYES SCH ×3 (13:18→20:47)
[2018-11-02] MEDS ORDERED: SODIUM CHLORIDE 0.9% 250ML 250 ML ONE (20:23)
[2018-11-02] MEDS ORDERED: VANCOMYCIN HCL INJ 1,000 MG VIAL IVPB ONE (20:24)
[2018-11-02] MEDS: ATORVASTATIN 10 MG TAB PO SCH (20:47)
[2018-11-02] MEDS: VANCOMYCIN HCL INJ 750 MG in SODIUM CHLORIDE 0.9% 250ML 250 ML IVPB SCH (22:00)
[2018-11-03] MEDS: LEVALBUTEROL NEBS 1.25 MG/3 ML VIAL NEB SCH ×4 (00:15→23:56)
[2018-11-03] MEDS: SODIUM CHLORIDE 0.9% (FLUSH) 10 ML SYG IV PRN ×3 (05:55→21:50)
[2018-11-03] MEDS: PANTOPRAZOLE SODIUM IV 40 MG VIAL IV SCH (05:55)
[2018-11-03] MEDS ORDERED: SODIUM CHL 0.9% 50ML MIN-BAG+ 50 ML IVPB ONE (07:09)
[2018-11-03] MEDS ORDERED: CEFEPIME 2 GM VIAL ONE (07:10)
[2018-11-03] MEDS: POTASSIUM CHLORIDE 20 MEQ TAB PO SCH (07:26)
[2018-11-03] MEDS: FERROUS SULFATE 325 MG TAB PO SCH ×2 (07:26→16:50)
--- NOTE | 2018-11-03 08:13 | PN ---
DATE: 11/02/18 SUPERVISING PHYSICIAN: Isaak Kincaid M.D. SUBJECTIVE: I got a call last night that the patient was having what they thought was some chest pain and looking a little bit more ill than previous morning. However, the episode was brief in occurrence; and this morning the patient actually has no recall of the event and states he feels better than he did yesterday. He has had no chest pain since this episode. Labs still show the tiopronin is within normal limits. He has had no acute changes in his EKG. He remains afebrile. He has had no nausea or vomiting and no further complaints. OBJECTIVE: VITAL SIGNS: Temperature 98.6, pulse 88, blood pressure 119/69, respirations 20, satting 92% to 98% on 2 liters nasal cannula at 2 liters at rest. I & O show a positive balance of 780 with 2180 in and 1400 out. Platelets 60.5 kg. GENERAL: The patient today appears much more alert and interactive and in better sprits, talking with his family. CHEST: Lung sounds are diminished toward the bases bilaterally with some continued rhonchi heard on the right mid lung lamas, again, more prominent on the posterior aspect. No wheezing or rales are noted. HEART: Regular rate and rhythm. ABDOMEN: Soft, non-tender. Positive bowel sounds. EXTREMITIES: Without any edema. NEUROLOGIC: He is alert and oriented times three. LABORATORY: CBC this morning shows a neutropenia at 2.9 with hemoglobin of 9 and hematocrit 28.0, platelet count 128,000, differential does show a left shift. Chemistries show normal electrolytes, BUN 22, creatinine is improving, down to 8.65. Calcium 8.1. Troponin last night was 0.02, this morning 0.03 and his BNP is actually down from admission to 2,000 from 1640. MICROBIOLOGY: Sputum culture is pending. Blood cultures remain negative at 24 hours. . RADIOLOGY: Repeat chest x-ray this morning per radiology interpretation shows unchanged small bilateral pleural effusion but improved lung opacity with residual bibasilar opacities representing pulmonary edema, atelectasis or pneumonia, unchanged, and large cardiac silhouette. No pneumothorax. ASSESSMENT: 1. Chest pain on admission with no findings on EKG and troponins remaining negative with patient not having any recurrent chest pain, resolved. 2. Right middle lobe pneumonia likely healthcare acquired and contributing to #1 with sputum cultures pending and patient continuing to show some improvement with parenteral antibiotics. 3. History of multiple cardiac stints with a stint that failed placement within the last 3 years. 4. 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 5. Acute on chronic congestive heart failure, systolic etiology with ejection fraction of 25% on echocardiogram in September 2018 with elevated BNP with BNP now showing to be decreasing with patient showing overt times of pulmonary edema. 6. Renal insufficiency likely prerenal azotemia from some dehydration showing some improvement with fluid and ongoing therapy. 7. Macrocytic anemia, likely B12 with a low normal B12 level and patient having been started on folic acid. Will need further workup as an outpatient. PLAN: Will continue with antibiotic coverage with Cefepime and vancomycin per Pharmacy protocol. 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 Will continue to monitor his renal function and dose antibiotics as appropriate. He responded to the single dose of Solu-Medrol and at this point will hold off on additional steroid coverage. He did fairly well with physical therapy yesterday, although he is weak will need to continue with assessment. Will hold off on additional Lasix today and look at resuming his normal Lasix dose in the morning. He remains on a prophylactic dose of Lovenox. Will anticipate at least another 24 hours and hopefully be able to discharge either tomorrow or Saturday. Until then, will continue to monitor and treat the patient as needed. #[id number] [facility]
[2018-11-03] MEDS: FOLIC ACID 1 MG TAB PO SCH (08:41)
[2018-11-03] MEDS: METOPROLOL SUCCINATE XL 25 MG TAB PO SCH (08:41)
[2018-11-03] MEDS: AMIODARONE HCL 200 MG TAB PO SCH ×2 (08:41→21:47)
[2018-11-03] MEDS: CLOPIDOGREL 75 MG TAB PO SCH (08:42)
[2018-11-03] MEDS: GENTAMICIN 0.3% OPHTH SOL 1 DROP BOTH_EYES SCH ×4 (08:42→21:48)
[2018-11-03] MEDS: ASPIRIN (ENTERIC COATED) 81 MG TAB PO SCH (08:42)
[2018-11-03] MEDS: ENOXAPARIN SODIUM 30 MG/0.3 ML SYG SUBCU SCH (08:42)
[2018-11-03] MEDS: CEFEPIME 2 GM in SODIUM CHL 0.9% 50ML MIN-BAG+ 50 ML IVPB SCH (08:43)
[2018-11-03] MEDS: FUROSEMIDE 40 MG TAB PO SCH (08:58)
[2018-11-03] MEDS: IV SET AND CAP CHANGE INJ INJ SCH (16:39)
--- NOTE | 2018-11-03 20:26 | PN ---
DATE: 11/03/18 SUPERVISING PHYSICIAN: Jonah Otoole M.D. SUBJECTIVE: The patient is sitting in a bedside chair this morning. He notes that he is feeling a little bit better. He has been having a little bit of episodes later in the afternoon of some confusion, but easily is reoriented. Most likely a little bit of [place], although not enough to warrant administration of medication. He has been afebrile. He has been without any chest pains or any worsening shortness of breath. His is now admitted to the floor after she fell and has a pelvic fracture. He is aware of this fact and has discussed with his family the plan of care for him as well as his which is ultimately to discharge him to [facility]. The patient notes that his conjunctivitis is improving after starting him on Gentamicin drops. OBJECTIVE: VITAL SIGNS: Temperature 98.4, pulse 61, blood pressure 91/51, respirations 18, satting 99% on nasal cannula at rest. I's and O's show a positive balance of 500 with 2100 in, 1600 out. Weight is 61.6 kg. GENERAL: The patient is alert, resting comfortably. CHEST: Lung sounds are improved from yesterday. No obvious rhonchi is heard. Just diminished towards both bases. HEART: Regular rate and rhythm. ABDOMEN: Soft, non-tender. Positive bowel sounds. EXTREMITIES: Without any edema. NEUROLOGIC: He remains alert and oriented times three. LABORATORY: White count is now up to 9,100, hemoglobin is stable at 9.1, hematocrit 28.1 with continued macrocytosis on RBC indices with platelet count 156,000. Differential shows a resolving left shift. Chemistries show normal electrolytes. BUN 27, creatinine is fairly stable at 1.74, although slightly up from previous day of 1.65, calcium 8.5. MICROBIOLOGY: Preliminary sputum results show a few mixed gram positive pierce with gram stain showing gram positive bacilli and gram positive cocci. Blood cultures remain negative at 48 hours. RADIOLOGY: No additional radiographic studies today. ASSESSMENT: 1. Right middle lobe pneumonia likely healthcare acquired with current sputum culture showing gram positive and gram negative bacilli, awaiting final culture results and the patient currently on parenteral antibiotics to include vancomycin and Cefepime with the patient showing good response to treatment. 2. History of multiple cardiac stents and a previous failed stent to the LAD in the last 3 years with the patient having chest pains on admission probably related to #1 with the patient showing no elevation of troponin and no acute changes in EKGs since hospitalized with no recurrence of any signs or symptoms of acute coronary syndrome. 3. Acute on chronic congestive heart failure with a reduced ejection fraction, systolic etiology, with 25% ejection fraction on echocardiogram in September 2018 and an elevated BNP initially on admission with BNP showing to be decreasing with patient responding well to current treatment with previous Lasix and now on oral Lasix with no current signs of continued exacerbation. 4. Renal insufficiency likely from prerenal azotemia from dehydration, improving and showing to be stable with fluids and ongoing therapy with vancomycin probably contributing to some of the increase in his creatinine this morning. 5. Macrocytic anemia, likely B12 with low normal B12 levels and patient currently on folic acid. Will need continued workup as an outpatient. PLAN: The patient is progressing well. He has been on Cefepime and vancomycin, and given the culture results are not complete but we have preliminary showing gram positive cocci and gram negative bacilli, he certainly is covered. Will await final culture results. Again I hesitate to add any fluoroquinolones due to his past history of arrhythmias when he had a cardiac arrest. Will continue with aggressive pulmonary hygiene. He remains on DVT prophylaxis. He has been working with physical therapy and seems to be progressing fairly well, but hopefully will be able to discharge either tomorrow or the next if he continues to improve. He is now on his normal Lasix dose orally and doing good. Again, we are awaiting final culture results to further target antibiotic therapy. If at that point the patient clinically improves, which hopefully will be tomorrow or at least by Saturday, he could be discharged to [facility]. Of note is the patient's was admitted today to room 27 with a pelvic fracture after a fall and is awaiting placement at [facility], so hopefully this can occur this week so that they can both go to [facility] together. The patient has previously been at [facility]. In fact, he was just discharged and admitted to [facility] the day before he was admitted to the hospital, and Shira from [facility] has already been up to evaluate and is waiting for his as well, and both hopefully can be admitted at that point. Until then will continue to monitor and treat as needed. #[id number] [facility]
[2018-11-03] MEDS ORDERED: SODIUM CHLORIDE 0.9% 250ML 250 ML ONE ×2 (21:29→21:51)
[2018-11-03] MEDS ORDERED: VANCOMYCIN HCL INJ 1,000 MG VIAL IVPB ONE ×2 (21:29→21:51)
[2018-11-03] MEDS: ATORVASTATIN 10 MG TAB PO SCH (21:47)
[2018-11-03] MEDS: VANCOMYCIN HCL INJ 750 MG in SODIUM CHLORIDE 0.9% 250ML 250 ML IVPB SCH (22:10)
[2018-11-04] MEDS: PANTOPRAZOLE SODIUM IV 40 MG VIAL IV SCH (06:34)
--- NOTE | 2018-11-04 07:28 | RAD ---
Study: Frontal and Lateral Radiographs of the Chest. Indication: pneumonia Comparison: November 02, 2018 Impression: Median sternotomy wires. Cardiomegaly. Emphysema suspected with patchy consolidative changes of the lung bases redemonstrated with small bilateral pleural effusions which appear stable. Continued follow-up recommended. No pneumothorax. Age indeterminate lower thoracic wedge deformity. Correlation with point tenderness recommended. Surgical clips upper abdomen. Electronically signed by: Primitivo Cordero MD 11/04/2018 7:25 AM CDT
[2018-11-04] MEDS: FERROUS SULFATE 325 MG TAB PO SCH ×2 (07:49→17:20)
[2018-11-04] MEDS: POTASSIUM CHLORIDE 20 MEQ TAB PO SCH (07:50)
[2018-11-04] MEDS: LEVALBUTEROL NEBS 1.25 MG/3 ML VIAL NEB SCH ×2 (07:59→16:11)
[2018-11-04] MEDS ORDERED: SODIUM CHL 0.9% 50ML MIN-BAG+ 50 ML IVPB ONE (08:43)
[2018-11-04] MEDS ORDERED: CEFEPIME 2 GM VIAL ONE (08:44)
[2018-11-04] MEDS: FOLIC ACID 1 MG TAB PO SCH (09:05)
[2018-11-04] MEDS: METOPROLOL SUCCINATE XL 25 MG TAB PO SCH (09:05)
[2018-11-04] MEDS: AMIODARONE HCL 200 MG TAB PO SCH ×2 (09:05→21:04)
[2018-11-04] MEDS: ASPIRIN (ENTERIC COATED) 81 MG TAB PO SCH (09:05)
[2018-11-04] MEDS: FUROSEMIDE 40 MG TAB PO SCH (09:05)
[2018-11-04] MEDS: CLOPIDOGREL 75 MG TAB PO SCH (09:06)
[2018-11-04] MEDS: ENOXAPARIN SODIUM 30 MG/0.3 ML SYG SUBCU SCH (09:06)
[2018-11-04] MEDS: GENTAMICIN 0.3% OPHTH SOL 1 DROP BOTH_EYES SCH ×4 (09:06→21:04)
[2018-11-04] MEDS: SODIUM CHLORIDE 0.9% (FLUSH) 10 ML SYG IV PRN ×2 (09:07→21:59)
[2018-11-04] MEDS: CEFEPIME 2 GM in SODIUM CHL 0.9% 50ML MIN-BAG+ 50 ML IVPB SCH (09:07)
--- NOTE | 2018-11-04 19:43 | PN ---
DATE: 11/04/18 SUPERVISING PHYSICIAN: Jonah Otoole M.D. SUBJECTIVE: The patient is sitting up in his bed in his room. His daughter is at the bedside. We discussed his discharge planning going to [facility] today or tomorrow. He is also quite concerned with his 's discharge plan and we discussed that as well. He has no complaints of chest pain, nausea, vomiting, diarrhea or constipation. OBJECTIVE: VITAL SIGNS: Temperature 98.2, heart rate 58, blood pressure 101/61, respiratory rate 20, O2 sat 97% on 1.5 liters nasal cannula. RESPIRATORY: Essentially clear to auscultation bilaterally. He is somewhat diminished at the bases. CARDIAC: Regular rate and rhythm. At times he is slightly bradycardic. GASTROINTESTINAL: Abdomen is soft, nondistended, non- tender. Bowel sounds are positive. NEUROLOGIC: He is awake, alert and oriented times three. LABORATORY: Electrolytes are basically within normal limits. Creatinine is 1.72 and BUN 28. Preliminary blood cultures show no growth after 3 days. RADIOLOGY: Chest x-ray shows median sternotomy wires, cardiomegaly, emphysema suspected with patchy consolidative changes of the lung bases re-demonstrated with small bilateral pleural effusions which appear stable. Followup recommended. No pneumothorax. Age indeterminate lower thoracic wedge deformity. Correlation with point tenderness recommended. All other labs and films have been reviewed via the EMR. ASSESSMENT: 1. Right middle lobe pneumonia likely healthcare acquired with current sputum culture showing gram positive and gram negative bacilli, awaiting final culture results. The patient is currently on parenteral antibiotics that include vancomycin and Cefepime, showing good response. 2. History of multiple cardiac stents with a previously failed stent to the LAD in the last 3 years. The patient had chest pain on admission most likely related to pneumonia. There have been no troponin elevations as well as no acute EKG changes. 3. Acute on chronic congestive heart failure with a reduced ejection fraction, with systolic etiology. He has a 25% ejection fraction on echocardiogram in September of 2018. He also had an elevated BNP on admission. The patient currently on diuretic treatment. 4. Renal insufficiency most likely from prerenal azotemia and dehydration, that is improving very slowly. 5. Macrocytic anemia. PLAN: We will continue present supportive care. We are awaiting acceptance from [facility]. Hopefully that will be this afternoon or tomorrow. I will hold on any lab as they are fairly stable for now and he will need close followup with his PCP at some point. He will also need physical therapy at [facility]. Will continue to monitor closely and follow as needed. #[id number] [facility]
[2018-11-04] MEDS ORDERED: SODIUM CHLORIDE 0.9% 250ML 250 ML ONE (20:34)
[2018-11-04] MEDS ORDERED: VANCOMYCIN HCL INJ 1,000 MG VIAL IVPB ONE (20:34)
[2018-11-04] MEDS: ATORVASTATIN 10 MG TAB PO SCH (21:04)
[2018-11-04] MEDS: VANCOMYCIN HCL INJ 750 MG in SODIUM CHLORIDE 0.9% 250ML 250 ML IVPB SCH (21:59)
[2018-11-05] MEDS: LEVALBUTEROL NEBS 1.25 MG/3 ML VIAL NEB SCH ×3 (00:51→16:21)
[2018-11-05] MEDS: PANTOPRAZOLE SODIUM IV 40 MG VIAL IV SCH (06:08)
[2018-11-05] MEDS: SODIUM CHLORIDE 0.9% (FLUSH) 10 ML SYG IV PRN (06:09)
[2018-11-05] MEDS: FERROUS SULFATE 325 MG TAB PO SCH ×2 (07:29→17:50)
[2018-11-05] MEDS: POTASSIUM CHLORIDE 20 MEQ TAB PO SCH (07:29)
[2018-11-05] MEDS ORDERED: SODIUM CHL 0.9% 50ML MIN-BAG+ 50 ML IVPB ONE (09:09)
[2018-11-05] MEDS ORDERED: CEFEPIME 2 GM VIAL ONE (09:10)
[2018-11-05] MEDS: METOPROLOL SUCCINATE XL 25 MG TAB PO SCH (10:09)
[2018-11-05] MEDS: CLOPIDOGREL 75 MG TAB PO SCH (10:09)
[2018-11-05] MEDS: ASPIRIN (ENTERIC COATED) 81 MG TAB PO SCH (10:09)
[2018-11-05] MEDS: FUROSEMIDE 40 MG TAB PO SCH (10:09)
[2018-11-05] MEDS: AMIODARONE HCL 200 MG TAB PO SCH ×2 (10:09→21:29)
[2018-11-05] MEDS: CEFEPIME 2 GM in SODIUM CHL 0.9% 50ML MIN-BAG+ 50 ML IVPB SCH (10:10)
[2018-11-05] MEDS: ENOXAPARIN SODIUM 30 MG/0.3 ML SYG SUBCU SCH (10:10)
[2018-11-05] MEDS: GENTAMICIN 0.3% OPHTH SOL 1 DROP BOTH_EYES SCH ×4 (10:25→21:29)
[2018-11-05] MEDS: FOLIC ACID 1 MG TAB PO SCH (10:26)
[2018-11-05] MEDS ORDERED: SODIUM CHLORIDE 0.9% 500ML 500 ML ONE (14:12)
[2018-11-05] MEDS ORDERED: SODIUM CHLORIDE 0.9% 250ML 250 ML ONE (20:02)
[2018-11-05] MEDS ORDERED: VANCOMYCIN HCL INJ 1,000 MG VIAL IVPB ONE (20:03)
[2018-11-05] MEDS: ATORVASTATIN 10 MG TAB PO SCH (21:29)
[2018-11-05] MEDS: VANCOMYCIN HCL INJ 750 MG in SODIUM CHLORIDE 0.9% 250ML 250 ML IVPB SCH (22:25)
[2018-11-06] MEDS: LEVALBUTEROL NEBS 1.25 MG/3 ML VIAL NEB SCH ×2 (00:03→08:54)
[2018-11-06 03:28] VITALS: O2SAT 99
[2018-11-06] MEDS: PANTOPRAZOLE SODIUM IV 40 MG VIAL IV SCH (06:14)
[2018-11-06 06:21] VITALS: TEMP 97.8
--- NOTE | 2018-11-06 07:17 | RAD ---
EXAM: Two view chest. INDICATION: Pneumonia. COMPARISON: Chest x-ray: 11/04/2018. FINDINGS: Again noted are bibasilar airspace opacities with small bilateral pleural effusions. The heart size is stable. There is no pneumothorax. The bones are demineralized. Compression deformities of the lower thoracic spine are again noted of unknown chronicity, possibly acute IMPRESSION: No significant change compared to the prior exam. Electronically signed by: Ramirez Hankins MD 11/06/2018 7:14 AM CDT Workstation: [id number]
[2018-11-06] MEDS ORDERED: SODIUM CHL 0.9% 50ML MIN-BAG+ 50 ML IVPB ONE (07:42)
[2018-11-06] MEDS ORDERED: CEFEPIME 2 GM VIAL ONE (07:43)
[2018-11-06] MEDS: FERROUS SULFATE 325 MG TAB PO SCH (08:11)
[2018-11-06] MEDS: GENTAMICIN 0.3% OPHTH SOL 1 DROP BOTH_EYES SCH (08:11)
[2018-11-06] MEDS: ASPIRIN (ENTERIC COATED) 81 MG TAB PO SCH (08:12)
[2018-11-06] MEDS: FOLIC ACID 1 MG TAB PO SCH (08:12)
[2018-11-06] MEDS: CLOPIDOGREL 75 MG TAB PO SCH (08:12)
[2018-11-06] MEDS: METOPROLOL SUCCINATE XL 25 MG TAB PO SCH (08:12)
[2018-11-06] MEDS: POTASSIUM CHLORIDE 20 MEQ TAB PO SCH (08:12)
[2018-11-06] MEDS: ENOXAPARIN SODIUM 30 MG/0.3 ML SYG SUBCU SCH (08:12)
[2018-11-06] MEDS: CEFEPIME 2 GM in SODIUM CHL 0.9% 50ML MIN-BAG+ 50 ML IVPB SCH (08:17)
[2018-11-06] MEDS: FUROSEMIDE 40 MG TAB PO SCH (08:21)
[2018-11-06] MEDS: AMIODARONE HCL 200 MG TAB PO SCH (08:28)
[2018-11-06 10:33] VITALS: BP 89/49
--- NOTE | 2018-11-10 13:31 | PN ---
SUPERVISING PHYSICIAN: Viviane Otoole MD DATE: 11/05/18 SUBJECTIVE: The patient is lying in bed. He is much less verbal today than normal. His daughter thinks he looks very pale and he has a history of anemia. She is very worried that he is not acting his normal self. He does answer questions correctly, but only simple yes/no questions. We will check his hemoglobin and hematocrit and monitor him close. OBJECTIVE: VITAL SIGNS: Temperature 97.9. Heart rate 56. Blood pressure 120/65. Respiratory rate 16. O2 saturation 98% on 1 liter nasal cannula. RESPIRATORY: Essentially clear to auscultation bilaterally. He is somewhat diminished at the bases. CARDIAC: Regular rate and rhythm, but it is at times bradycardic. GASTROINTESTINAL: Abdomen is soft, nondistended, nontender. Bowel sounds are positive. NEUROLOGIC: He is awake, alert. He mostly just answers yes/no questions. LABORATORY: Hemoglobin 9.3, hematocrit 28.8. All other labs and films have been reviewed via the EMR. ASSESSMENT: 1. Right middle lobe pneumonia likely healthcare acquired with current sputum culture showing gram positive and gram negative bacilli, awaiting final culture results. The patient is currently on parenteral antibiotics that include vancomycin and Cefepime, showing good response. 2. History of multiple cardiac stents with a previously failed stent to the LAD in the last 3 years. The patient had chest pain on admission most likely related to pneumonia. There have been no troponin elevations as well as no acute EKG changes. 3. Acute on chronic congestive heart failure with a reduced ejection fraction, with systolic etiology. He has a 25% ejection fraction on echocardiogram in September of 2018. He also had an elevated BNP on admission. The patient currently on diuretic treatment. 4. Renal insufficiency most likely from prerenal azotemia and dehydration, that is improving very slowly. 5. Macrocytic anemia. PLAN: We will continue present supportive care. Initially, we had planned him to [facility] today for physical therapy, but he is quite lethargic and he does have a history of anemia. I will recheck his labs in the morning. Hopefully he can be discharged tomorrow to [facility]. I may have to call Dr. Foster, his primary care physician, to discuss his case, but there are no neurologic changes other than his lethargy, so we will monitor him overnight and plan for discharge tomorrow. #[id number] [facility]
--- NOTE | 2018-11-10 13:54 | DS ---
SUPERVISING PHYSICIAN: Viviane Otoole MD DISCHARGE DIAGNOSIS: 1. Right middle lobe pneumonia likely healthcare acquired with current sputum culture showing gram positive and gram negative bacilli. The patient has been on parenteral antibiotic that include vancomycin and cefepime. He has shown good clinical response. His final sputum culture shows a few mixed normal respiratory pierce. 2. History of multiple cardiac stents with a previously failed stent to the left anterior descending artery in the last 3 years. The patient had chest pain on admission, but was most likely related to pneumonia. His cardiac enzymes have been negative and there have been on acute changes on his EKG. 3. 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 He has a 25% ejection fraction per his echocardiogram in September of 2018. He had an elevated BNP on admission. The patient currently on diuretic treatment. 4. Renal insufficiency, most likely from prerenal azotemia and dehydration, improving very slowly. 5. Macrocytic anemia. HISTORY OF PRESENT ILLNESS: This is an 88-year-old male patient who has a history of a recent cardiac arrest. He had Torsades arrhythmia the previous month. He was treated at [facility] after he coded at [facility]. He was started on amiodarone. He was discharged home and spent 3 weeks in [facility]. The Saturday prior to his admission, he was discharged to [facility]. Shortly after his discharge from [facility], he purulent sputum and cough. There were no fevers, but he had increased shortness of breath and coarse breath sounds. He also had some chest pains that were substernal that started 5 hours prior to his arrival in the Emergency Room. He described it as pressure with some radiation to his left arm, but his symptoms had essentially resolved prior to going to the Emergency Room. 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 He was on a ventilator for approximately 5 days while at [facility]. His CBC in our Emergency Room showed a white count of 4,900 but his hemoglobin was 10.1, hematocrit 31.1 and RBCs indicated a macrocytosis. Platelet count was negative. Differential was without a left shift. Coagulation studies were unremarkable. Initial chemistries showed normal electrolytes with BUN 20, creatinine 1.82. Calcium 8.2, glucose 99, total bilirubin was slightly elevated at 1.1. All other liver functions were within normal limits. He had 2 sets of troponin prior to admission that were both 0.03. He had a BNP of 2,000. Since his cardiac arrest one month ago, his BNP has been around 4,000. Dr. Foster, his primary care physician, has said his baseline BNP is around 2,000 with no symptoms. Radiographic studies showed mild cardiomegaly without any failure with some pleural thickening and increased bibasilar presentation with no edema, no obvious focal consolidation. Vital signs showed on admission that he was afebrile with temperature of 96, pulse 57, blood pressure 111/54, saturation 94% on 2 liters nasal cannula. Given the patient's significant underlying history, previous cardiac arrest and recent hospitalization, the patient was admitted for acute coronary syndrome as well as concerns for developing right-sided lower pneumonia, probably healthcare acquired given that he has been in the hospital in an long-term care facility within the last month. HOSPITAL COURSE: He was admitted to the hospital with cardiac monitoring and to rule out acute coronary syndrome. He was also treated for right lower lobe pneumonia, healthcare acquired and concerns for possible Pseudomonas as well as a gram positive etiology. Sputum cultures were sent off and he was initiated on cefepime as well as vancomycin per pharmacy protocol. He was also given some judicious fluids with aggressive pulmonary hygiene including Xopenex breathing treatments. He progressively improved over the next few days although he was extremely weak, which may be due to multiple admissions and lengthy illnesses. He was also given a single dose of Solu-Medrol and physical therapy also did an assessment. His troponins were all negative. He was started on Lovenox 1 mg/kg and then transitioned to DVT prophylaxis of Lovenox. During this time, his was admitted to the hospital for a fractured pelvis. As he increased in strength, he went down to visit her multiple times per day and his condition continued to improve. The day prior to discharge, his daughter was very concerned because he had become less vocal, he slept all day and was fairly lethargic. His hemoglobin and hematocrit had been trending downward. I checked his hemoglobin and hematocrit and they had actually improved, but the patient was kept overnight for observation. Today, his hemoglobin and hematocrit are improved and he will be discharged to [facility]. LABORATORY: WBCs were initially 4.9 and at discharge, 6.1. At one time, it was down to 2.9, but mostly remained within normal limits. Hemoglobin and hematocrit started at 9 and 27.9, the high being 9.3 and 28.8. His low was 8.9 and 27.9 and today, is 9.6 and 29.4. Initially, he did have a left shift on differential, but today his neutrophils are 77.4. Electrolytes remained basically within normal limits. Creatinine on admission was 1.82, got as low at 1.65 and today is 1.82. His baseline creatinine is around 1.8. His BNP several days ago was 1,640. His urine was unremarkable. His blood culture showed no growth after 5 days. Sputum culture initially showed gram positive bacilli as well as gram negative, but the final sputum culture showed normal respiratory pierce. His chest x-ray today showed no significant changes compared to prior exam. DISCHARGE PLAN: The patient will be discharged to [facility] for care as well as physical therapy. He is to continue his previous medications with the addition of some antibiotics, which will be cefdinir. He is to followup with Dr. Foster in the next 1 to 2 weeks. He is to return to the hospital or followup with Dr. Foster for any problems or complications. DISCHARGE MEDICATIONS: 1. Nitroglycerin. 2. Atorvastatin. 3. MiraLAX. 4. Metoprolol. 5. Ferrous sulfate. 6. Furosemide. 7. Erythromycin ophthalmic. 8. Plavix. 9. Aspirin. 10. Amiodarone. 11. Potassium chloride. 12. Align. 13. Cefdinir. 14. Folic acid. 15. Gentamicin ophthalmic. 16. Mineral oil petroleum ophthalmic. #[id number]
== END 2018-11-06 13:30 | DRG 193 ==
LOC: ER 10:45 → MS 16:22 → OBSVTOIN 16:22
PROVIDERS: ADMIT Nurse Practitioner Family; ATTEND Nurse Practitioner Family
DX: J18.1 Lobar pneumonia, unspecified organism (principal); I50.23 Acute on chronic systolic (congestive) heart failure; E85.9 Amyloidosis, unspecified; Y95 Nosocomial condition; R07.9 Chest pain, unspecified; E86.0 Dehydration; D53.9 Nutritional anemia, unspecified; D51.9 Vitamin B12 deficiency anemia, unspecified; H10.9 Unspecified conjunctivitis; I25.2 Old myocardial infarction; Z66 Do not resuscitate; Z95.1 Presence of aortocoronary bypass graft; Z95.820 Peripheral vascular angioplasty status with implants and grafts; Z90.5 Acquired absence of kidney; Z79.82 Long term (current) use of aspirin; Z79.02 Long term (current) use of antithrombotics/antiplatelets; Z79.899 Other long term (current) drug therapy; Z87.891 Personal history of nicotine dependence

== ENCOUNTER → 2018-11-18 | Outpatient (CLI) | payer MEDICARE | LOC: GOCC 16:44 | PROVIDERS: ATTEND General Practice | DX: N39.0 Urinary tract infection, site not specified (principal) ==

== ENCOUNTER → 2019-04-03 | Outpatient (CLI) | payer MEDICARE | LOC: GOCC 15:29 | PROVIDERS: ATTEND Internal Medicine | DX: R30.0 Dysuria (principal); R10.9 Unspecified abdominal pain ==

== ENCOUNTER 2019-04-30 03:29 | Emergency (ER) | payer MEDICARE ==
--- NOTE | 2019-04-30 05:35 | RAD ---
EXAM DESCRIPTION: Pelvis CLINICAL HISTORY: unwitnessed fall COMPARISON: None. FINDINGS: Single view of the pelvis. Bilateral mild hip joint space narrowing. Atherosclerotic vascular calcification. Osteopenia. Degenerative change of the lumbar spine. Postoperative change in the pelvis. No acute fracture identified. IMPRESSION: 1. No acute fracture. Electronically signed by: Jonah Morrison 04/30/2019 5:33 AM CDT
--- NOTE | 2019-04-30 05:36 | CT ---
EXAM DESCRIPTION: CT of the head without contrast CLINICAL HISTORY: unwitnessed fall COMPARISON: None available TECHNIQUE: Axial CT of the head obtained from the skull apex to the skull base without contrast. FINDINGS: No acute intracranial hemorrhage identified. No mass, mass effect, shift of the midline, abnormal extra-axial fluid collection or CT evidence of acute ischemic change identified. The ventricular system and sulcal spaces are mildly enlarged compatible with mild cerebral atrophy. Scattered areas of hypodensity throughout the supratentorial white matter are nonspecific and may be related to chronic small vessel ischemic change. The visualized paranasal sinuses and the mastoids are clear. No skull fracture identified. Visualized orbits and globes are unremarkable. Atherosclerotic calcification of the intracranial internal carotid arteries. DLP:967.47 mGy-cm IMPRESSION: 1. No acute intracranial abnormality by CT criteria. This exam was performed according to our departmental dose-optimization program, which includes automated exposure control, adjustment of the mA and/or kV according to patient size and/or use of iterative reconstruction technique. Electronically signed by: Jonah Morrison 04/30/2019 5:34 AM CDT
--- NOTE | 2019-04-30 05:37 | RAD ---
EXAM DESCRIPTION: Chest,1 View CLINICAL HISTORY: unwitnessed fall COMPARISON: 11/06/2018 FINDINGS: Single frontal view of the chest. Cardiomediastinal silhouette: Cardiac megaly. Prior median sternotomy. Atherosclerotic vascular calcification. Lungs: Diffuse bilateral interstitial and alveolar opacities. No pneumothorax. Bones: No acute osseous abnormality. Upper abdomen: Postoperative change in the epigastric region. IMPRESSION: 1. Cardiomegaly with diffuse bilateral interstitial and alveolar opacities concerning for pulmonary edema. Electronically signed by: Jonah Morrison 04/30/2019 5:36 AM CDT
--- NOTE | 2019-04-30 05:38 | RAD ---
EXAM DESCRIPTION: Hip,Left 2 Views CLINICAL HISTORY: unwitnessed fall COMPARISON: None. FINDINGS: 2 views of the left hip. Osteopenia. No definite acute fracture. Suboptimal positioning of the left femur. Mild left hip joint space narrowing. Postoperative change in the pelvis. Atherosclerotic vascular calcification IMPRESSION: 1. No acute fracture identified. If the patient continues to have pain follow-up radiographs may be helpful. Electronically signed by: Jonah Morrison 04/30/2019 5:37 AM CDT
--- NOTE | 2019-04-30 05:40 | RAD ---
EXAM DESCRIPTION: Shoulder,Left 2 or More Views CLINICAL HISTORY: unwitnessed fall COMPARISON: None. FINDINGS: 2 views of the left shoulder. Osteopenia. Degenerative change of the acromioclavicular and glenohumeral joints. No acute fracture or dislocation. No acute abnormalities of visualized left ribs. Prior median sternotomy. IMPRESSION: 1. No acute fracture or dislocation. Electronically signed by: Jonah Morrison 04/30/2019 5:38 AM CDT
--- NOTE | 2019-04-30 05:43 | CT ---
EXAM DESCRIPTION: CT of the cervical spine without contrast. CLINICAL HISTORY: unwitnessed fall COMPARISON: None available TECHNIQUE: Axial CT of the cervical spine obtained without contrast. FINDINGS: Alignment of the cervical spine is maintained without evidence of subluxation. The atlantoaxial, atlantodental, and occipitoatlantal intervals are preserved. No fracture identified. Vertebral body height preserved. Prevertebral soft tissues are unremarkable. Mild multilevel loss of intervertebral disc height with endplate spondylosis, facet arthropathy, and uncovertebral spurring. Visualized skull base is intact. No fracture of the visualized facial bones. Visualized mastoid air cells and paranasal sinuses are well aerated. Visualized thyroid is unremarkable. No cervical lymphadenopathy. No pneumothorax in the visualized lung apices. Centrilobular emphysematous changes involving apices. Atherosclerotic vascular calcification. DLP: 457.99 mGy-cm IMPRESSION: 1. No acute fracture or subluxation of the cervical spine. 2. Multilevel degenerative change of the cervical spine. This exam was performed according to our departmental dose-optimization program, which includes automated exposure control, adjustment of the mA and/or kV according to patient size and/or use of iterative reconstruction technique. Electronically signed by: Jonah Morrison 04/30/2019 5:42 AM CDT
--- NOTE | 2019-04-30 06:20 | ED.PDOC ---
History of Present Illness - General Source: patient, RN notes reviewed, Vital Signs reviewed, EMS notes reviewed Exam Limitations: no limitations - History of Present Illness Initial Comments: Pt found on floor in unwitnessed fall at the NH. Pt c/o left hip pain, VELASQUEZ, neck pain. Pt denies n/v/d/cp/sob/dizziness. 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 Severity: moderate Improving Factors: nothing Worsening Factors: movement, other - palpation of left hip Associated Symptoms: denies symptoms <Braulio Arrington - Last Filed: 04/30/19 06:17> <CONNIE HUMPHREYS - Last Filed: 04/30/19 10:23> - General Chief Complaint: Trauma Stated Complaint: pain to left hip, left side of head, left shoulder Time Seen by Provider: 04/30/19 05:52 - History of Present Illness Allergies/Adverse Reactions: Allergies NO KNOWN ALLERGY Allergy (Verified 04/30/19 04:03) Home Medications: Ambulatory Orders Amiodarone HCl 200 mg PO BID 10/31/18 Aspirin [Aspirin Adult Low Dose] 81 mg PO DAILY 10/31/18 Atorvastatin Calcium [Lipitor] 10 mg PO BEDTIME 10/31/18 Clopidogrel Bisulfate 75 mg PO DAILY 10/31/18 Ferrous Sulfate 325 mg PO BID 10/31/18 Furosemide 40 mg PO DAILY 10/31/18 Polyethylene Glycol 3350 [Miralax] 17 gm PO BID PRN 10/31/18 Folic Acid 1 mg PO DAILY #30 tab 11/05/18 Acetaminophen W/ Codeine [Tylenol W/ CODEINE #3] 1 ea PO Q4HR PRN 04/30/19 Acetaminophen [Tylenol] 650 mg PO Q6HRS PRN 04/30/19 Carboxymethylcellulose-Hyprome [Genteal] 1 applic BOTH_EYES TID 04/30/19 Cetirizine HCl [Zyrtec Allergy] 10 mg PO DAILY 04/30/19 Docusate Sodium [Colace Cap] 100 mg PO BID 04/30/19 Magnesium Hydroxide [Milk Of Magnesia] 30 ml PO DAILY PRN 04/30/19 Metoprolol Succinate [Metoprolol Succinate ER] 25 mg PO DAILY 04/30/19 Mineral Oil/Petrolatum Ophth [Refresh Lacri-Lube] 1 applic BOTH_EYES BEDTIME 04/30/19 Ondansetron [Ondansetron Odt] 4 mg PO Q4HR PRN 04/30/19 Potassium Chloride [Potassium Chloride ER] 20 meq PO DAILY 04/30/19 Tramadol HCl 50 mg PO Q4HR PRN 04/30/19 Review of Systems - Review of Systems Constitutional: States: no symptoms reported, see HPI. Denies: chills, fever EENTM: States: no symptoms reported Respiratory: States: no symptoms reported. Denies: cough, short of breath Cardiology: States: no symptoms reported. Denies: chest pain, palpitations Gastrointestinal/Abdominal: States: no symptoms reported. Denies: abdominal pain Genitourinary: States: no symptoms reported Musculoskeletal: States: see HPI, joint pain, neck pain Neurological: States: headache, other - skin abrasion Endocrine: States: no symptoms reported Hematologic/Lymphatic: States: no symptoms reported All other Systems: Reviewed and Negative <Braulio Arrington - Last Filed: 04/30/19 06:17> Past Medical History (General) - Patient Medical History Hx Seizures: No Hx Stroke: No Hx Dementia: No Hx Asthma: No Hx of COPD: Yes - amyloidosis Hx Cardiac Disorders: Yes - Hx of cardiac arrest Hx Congestive Heart Failure: Yes Hx Pacemaker: No Hx Hypertension: Yes Hx Thyroid Disease: No Hx Diabetes: Yes Hx Gastroesophageal Reflux: Yes Hx Renal Disease: No Hx Cancer: No Hx of HIV: No Hx Hepatitis C: No Hx MRSA: No Surgical History: noncontributory - Vaccination History Hx Influenza Vaccination: Yes - Social History Hx Tobacco Use: No - unknown unable to obtain information Hx Alcohol Use: No Hx Substance Use: No Hx Physical Abuse: No Hx Emotional Abuse: No - Activities of Daily Living Retirement/Assisted Living (if applicable):: [facility] <Braulio Arrington - Last Filed: 04/30/19 06:17> Family Medical History - Family History Mother Family History: Unknown Living Status: Unknown <Braulio Arrington - Last Filed: 04/30/19 06:17> Physical Exam - Physical Exam General Appearance: Alert, Frail, Well Groomed, Well Hydrated Eye Exam: bilateral normal Ears, Nose, Throat: hearing grossly normal, normal ENT inspection, normal pharynx Neck: limited range of motion - secondary to stiffness Respiratory: chest non-tender, lungs clear, normal breath sounds, no respiratory distress, no accessory muscle use Cardiovascular/Chest: normal peripheral pulses, regular rate, rhythm Gastrointestinal/Abdominal: normal bowel sounds, non tender, soft Back Exam: other - skin abrasion to right scapular area Extremity: pelvis stable, other - marked TTP of left hip Neurologic: no motor/sensory deficits, alert Skin Exam: normal color, warm/dry, other - abrasion to right scapular area Lymphatic: no adenopathy <Braulio Arrington - Last Filed: 04/30/19 06:17> Progress - EKG/XRAY/CT Xray Comments: CT head/neck-negative for frx. Xrays-negative for frx. +Osteopenia CT Ordered: Yes <Braulio Arrington - Last Filed: 04/30/19 06:17> - Progress Progress: 04/30/19 08:[address] Mendoza - He asked that I contact hospitalist. If hospitalist wants to admit, they can contact him and decide if and when pt is to go to surgery. 0815 Usman Zaidi - he asked that I leave pt in ER until he and anesthesia are able to review pt's history to determine if pt can be managed here. 04/30/19 08:15 04/30/19 0837 Family member arrived. Updated him on findings, including non- displaced hip fracture and pending anesthesia eval. 04/30/19 10:21 D/w Dr. Vega, [facility], accepted transfer. <CONNIE HUMPHREYS - Last Filed: 04/30/19 10:23> Departure <Braulio Arrington - Last Filed: 04/30/19 06:17> - Departure Time of Disposition: 10:23 <CONNIE HUMPHREYS - Last Filed: 04/30/19 10:23> - Departure Clinical Impression: Hip fracture Qualifiers: Encounter type: initial encounter Fracture type: closed Laterality: left Qualified Code(s): S72.002A - Fracture of unspecified part of neck of left femur, initial encounter for closed fracture Fall Qualifiers: Encounter type: initial encounter Qualified Code(s): W19.XXXA - Unspecified fall, initial encounter Disposition: Transfer to Hospital Condition: Fair Departure Forms: ED Discharge - Pt. Copy, Patient Portal Self Enrollment Instructions: DI for Trauma Referrals: Roland Foster MD [Primary Care Provider] - 1-2 Weeks Home Medications: Ambulatory Orders Amiodarone HCl 200 mg PO BID 10/31/18 Aspirin [Aspirin Adult Low Dose] 81 mg PO DAILY 10/31/18 Atorvastatin Calcium [Lipitor] 10 mg PO BEDTIME 10/31/18 Clopidogrel Bisulfate 75 mg PO DAILY 10/31/18 Ferrous Sulfate 325 mg PO BID 10/31/18 Furosemide 40 mg PO DAILY 10/31/18 Polyethylene Glycol 3350 [Miralax] 17 gm PO BID PRN 10/31/18 Folic Acid 1 mg PO DAILY #30 tab 11/05/18 Acetaminophen W/ Codeine [Tylenol W/ CODEINE #3] 1 ea PO Q4HR PRN 04/30/19 Acetaminophen [Tylenol] 650 mg PO Q6HRS PRN 04/30/19 Carboxymethylcellulose-Hyprome [Genteal] 1 applic BOTH_EYES TID 04/30/19 Cetirizine HCl [Zyrtec Allergy] 10 mg PO DAILY 04/30/19 Docusate Sodium [Colace Cap] 100 mg PO BID 04/30/19 Magnesium Hydroxide [Milk Of Magnesia] 30 ml PO DAILY PRN 04/30/19 Metoprolol Succinate [Metoprolol Succinate ER] 25 mg PO DAILY 04/30/19 Mineral Oil/Petrolatum Ophth [Refresh Lacri-Lube] 1 applic BOTH_EYES BEDTIME 04/30/19 Ondansetron [Ondansetron Odt] 4 mg PO Q4HR PRN 04/30/19 Potassium Chloride [Potassium Chloride ER] 20 meq PO DAILY 04/30/19 Tramadol HCl 50 mg PO Q4HR PRN 04/30/19 Transfer to Outside Facility - Transfer Information Accepting Provider:: Gary Accepting Facility: [facility] Reason for Transfer: required specialist not available <CONNIE HUMPHREYS - Last Filed: 04/30/19 10:23>
[2019-04-30] MEDS ORDERED: TETANUS,DIPHTHERIA,PERTUSSIS 1 EA SYG IM ONE (06:27)
--- NOTE | 2019-04-30 06:45 | CT ---
EXAM DESCRIPTION: CT ABDOMEN AND PELVIS WITHOUT CONTRAST CLINICAL HISTORY: unwitnessed fall COMPARISON: None Available. TECHNIQUE: CT of the abdomen and pelvis without IV contrast. Evaluation of the solid organs and vasculature is suboptimal due to lack of IV contrast. DLP: 503.53 mGy-cm FINDINGS: Bones: Acute minimally displaced subcapital fracture of the left femoral neck. Osteopenia. Degenerative change of the bilateral hips. Degenerative change of the sacroiliac joints and visualized lumbar spine. Pelvis: Bladder: Urinary bladder is unremarkable. Bowel: No dilated loops of the visualized large or small bowel. Scattered diverticula of the colon. Appendix: Not identified. Pelvis: Prostate is not enlarged. Vasculature: Aortoiliac atherosclerosis. IVC is unremarkable. Other: No free intraperitoneal air. No free fluid or lymphadenopathy. IMPRESSION: 1. Acute minimally displaced subcapital fracture of the left femoral neck. This exam was performed according to our departmental dose-optimization program, which includes automated exposure control, adjustment of the mA and/or kV according to patient size and/or use of iterative reconstruction technique. Electronically signed by: Jonah Morrison 04/30/2019 6:44 AM CDT
[2019-04-30 06:55] VITALS: TEMP 97.4
[2019-04-30 11:10] VITALS: BP 146/56; O2SAT 99
[2019-04-30] MEDS ORDERED: MORPHINE SULFATE INJ 10 MG/ML VIAL IV ONE (11:15)
[2019-04-30] MEDS ORDERED: ONDANSETRON INJ 4 MG/2 ML VIAL IV ONE (11:16)
== END 2019-04-30 11:25 | disposition short-term general hospital (02) ==
LOC: ER 03:29
DX: S72.002A Fracture of unspecified part of neck of left femur, initial encounter for closed fracture (principal); R51 Headache; M54.2 Cervicalgia; M25.512 Pain in left shoulder; S20.411A Abrasion of right back wall of thorax, initial encounter; J44.9 Chronic obstructive pulmonary disease, unspecified; I50.9 Heart failure, unspecified; I11.0 Hypertensive heart disease with heart failure; E11.9 Type 2 diabetes mellitus without complications; K21.9 Gastro-esophageal reflux disease without esophagitis; Z86.74 Personal history of sudden cardiac arrest; Z79.82 Long term (current) use of aspirin; Z79.899 Other long term (current) drug therapy; W19.XXXA Unspecified fall, initial encounter; Y92.129 Unspecified place in nursing home as the place of occurrence of the external cause
CPT/HCPCS: 36415; 70450; 71045; 72125; 72170; 72192; 73030; 73502; 80048; 82550; 82553; 83880; 84484; 85025; 85610; 85730; 90471; 90715; 93005; J2270; J2405

== ENCOUNTER 2019-05-10 20:01 | Emergency (ER) | payer MEDICARE ==
--- NOTE | 2019-05-10 21:45 | RAD ---
EXAM: XR Chest, 1 View CLINICAL HISTORY: The patient is 88 years old and is Male; trauma TECHNIQUE: Frontal view of the chest. COMPARISON: Chest radiograph April 30, 2019. FINDINGS: LUNGS: Interval improvement in the interstitial opacities are noted. PLEURAL SPACE: Bilateral pleural effusions are present. No pneumothorax. HEART: The cardiac silhouette is prominent and stable. MEDIASTINUM: Unremarkable. BONES/JOINTS: Median sternotomy wires and vascular clips are present. IMPRESSION: Cardiomegaly with improvement in interstitial edema and persistent pleural effusions. Electronically signed by: Gayle Hill MD 05/10/2019 9:44 PM CDT
[2019-05-10] MEDS ORDERED: CHLORHEXIDINE GLUCONATE 4 % 15 ML UD TOP ONE (21:47)
--- NOTE | 2019-05-10 22:04 | CT ---
EXAM DESCRIPTION: Cervical Spine (accession [id number]), Head (accession [id number]), Lumbar Spine (accession [id number]), Thoracic Spine (accession [id number]), Pelvis (accession [id number]) CLINICAL HISTORY: trauma COMPARISON: CT head, cervical spine, and pelvis April 30, 2019. TECHNIQUE: Multiple helical axial tomographic images were obtained of the head, cervical spine, thoracic spine, lumbar spine, and pelvis without intravenous contrast. Coronal and sagittal reformatted images were obtained. This exam was performed according to our departmental dose-optimization program, which includes automated exposure control, adjustment of the mA and/or kV according to patient size and/or use of iterative reconstruction technique. FINDINGS: Head: Generalized brain volume loss is demonstrated. There is mild low-attenuation in the periventricular white matter suggestive of chronic microvascular ischemic changes. There is no acute intracranial hemorrhage. No mass. No midline shift. No ventriculomegaly. Roldan-white matter differentiation is maintained. Paranasal sinuses are clear. Mastoid air cells and middle ear spaces are clear. Changes of lens replacement noted. Osseous structures are unremarkable. Surrounding soft tissues are unremarkable. Cervical spine: No evidence for an acute fracture. No subluxation. Multilevel degenerative changes are demonstrated with disc space narrowing and osteophyte formation. Facet joint arthropathy at multiple levels is demonstrated. Central canal appears severely narrowed at C3-C4. There is multilevel neural foraminal narrowing. Aortic atherosclerosis is present. Carotid atherosclerosis is noted. Left carotid stent is present. Emphysematous changes are present. Thoracic spine: No evidence for an acute fracture. No subluxation. Chronic anterior wedging of T2 is again demonstrated. There is chronic anterior wedging of T12. Multilevel degenerative changes are demonstrated with accentuated thoracic kyphotic curvature. Multilevel bridging osteophytes are present. Moderate centrilobular emphysematous changes are noted. Small bilateral pleural effusions are demonstrated with mild adjacent atelectasis. Coronary artery atherosclerosis is noted. Lumbar spine: No evidence for an acute fracture. No subluxation. Chronic appearing compression of the inferior endplate of L2 is noted. There are multilevel degenerative changes with moderate to severe central canal narrowing at L4-L5 and L5-S1. Changes of left nephrectomy noted. Cholecystectomy changes are present. Aortic atherosclerosis is present. Colonic diverticula are noted. Pelvis: Changes of left hip arthroplasty are present. No obvious hardware failure. No evidence for an acute fracture. No dislocation. Aortoiliac atherosclerosis is present. Colonic diverticula are noted. There is a trace amount of free fluid in the pelvis. Bladder wall appears mildly thickened. There is mild body wall edema. Left lower extremity subcutaneous edema is present. Several skin jose e lateral to the left hip noted compatible with recent surgery. Tiny focus of air in the subcutaneous tissues near the left hip is likely surgically related. IMPRESSION: 1. No acute intracranial process. 2. No evidence for an acute fracture of the cervical, thoracic, or lumbar spine. 3. No evidence for an acute fracture of the pelvis. Left hip arthroplasty changes without obvious hardware failure. 4. Multilevel degenerative changes of the spine. Electronically signed by: Redd Sharp MD 05/10/2019 10:03 PM CDT
--- NOTE | 2019-05-10 22:11 | ED.PDOC ---
History of Present Illness - General Chief Complaint: Trauma Stated Complaint: fall Time Seen by Provider: 05/10/19 20:11 - History of Present Illness Initial Comments: Pt sent from the group home for evaluation of trauma , pt got dizzy and fell down , hurting in head , back and hip , no bleeding or loss of consciousness Occurred: just prior to arrival Severity: moderate Pain Location: head, neck, pelvis, back Method of Injury: fall Improving Factors: rest Loss of Consciousness: no loss of consciousness Allergies/Adverse Reactions: Allergies NO KNOWN ALLERGY Allergy (Verified 04/30/19 04:03) Home Medications: Ambulatory Orders Amiodarone HCl 200 mg PO BID 10/31/18 Aspirin [Aspirin Adult Low Dose] 81 mg PO DAILY 10/31/18 Atorvastatin Calcium [Lipitor] 10 mg PO BEDTIME 10/31/18 Clopidogrel Bisulfate 75 mg PO DAILY 10/31/18 Ferrous Sulfate 325 mg PO BID 10/31/18 Furosemide 40 mg PO DAILY 10/31/18 Polyethylene Glycol 3350 [Miralax] 17 gm PO BID PRN 10/31/18 Folic Acid 1 mg PO DAILY #30 tab 11/05/18 Acetaminophen W/ Codeine [Tylenol W/ CODEINE #3] 1 ea PO Q4HR PRN 04/30/19 Acetaminophen [Tylenol] 650 mg PO Q6HRS PRN 04/30/19 Carboxymethylcellulose-Hyprome [Genteal] 1 applic BOTH_EYES TID 04/30/19 Cetirizine HCl [Zyrtec Allergy] 10 mg PO DAILY 04/30/19 Docusate Sodium [Colace Cap] 100 mg PO BID 04/30/19 Magnesium Hydroxide [Milk Of Magnesia] 30 ml PO DAILY PRN 04/30/19 Metoprolol Succinate [Metoprolol Succinate ER] 25 mg PO DAILY 04/30/19 Mineral Oil/Petrolatum Ophth [Refresh Lacri-Lube] 1 applic BOTH_EYES BEDTIME 04/30/19 Ondansetron [Ondansetron Odt] 4 mg PO Q4HR PRN 04/30/19 Potassium Chloride [Potassium Chloride ER] 20 meq PO DAILY 04/30/19 Tramadol HCl 50 mg PO Q4HR PRN 04/30/19 Review of Systems - Review of Systems Constitutional: States: no symptoms reported EENTM: States: no symptoms reported Respiratory: States: no symptoms reported Cardiology: States: no symptoms reported Gastrointestinal/Abdominal: States: no symptoms reported Genitourinary: States: no symptoms reported Musculoskeletal: States: see HPI Skin: States: no symptoms reported Neurological: States: see HPI Endocrine: States: no symptoms reported Hematologic/Lymphatic: States: no symptoms reported All other Systems: Reviewed and Negative Past Medical History (General) - Patient Medical History Hx Seizures: No Hx Stroke: No Hx Dementia: No Hx Asthma: No Hx of COPD: Yes - amyloidosis Hx Cardiac Disorders: Yes - Hx of cardiac arrest Hx Congestive Heart Failure: Yes Hx Pacemaker: No Hx Hypertension: Yes Hx Thyroid Disease: No Hx Diabetes: Yes Hx Gastroesophageal Reflux: Yes Hx Renal Disease: No Hx Cancer: No Hx of HIV: No Hx Hepatitis C: No Hx MRSA: No Surgical History: coronary bypass surgery - Vaccination History Hx Tetanus, Diphtheria Vaccination: No Hx Influenza Vaccination: Yes - Social History Hx Tobacco Use: No - unknown unable to obtain information Hx Alcohol Use: No Hx Substance Use: No Hx Physical Abuse: No Hx Emotional Abuse: No - Activities of Daily Living Retirement/Assisted Living (if applicable):: [facility] Family Medical History - Family History Mother Family History: Unknown Living Status: Unknown Physical Exam - Physical Exam General Appearance: Alert Head Injury: no evidence of injury Eye Exam: bilateral normal ENT Exam: hearing grossly normal, no evidence of ENT injury, no dental injury Neck Exam: non-tender, full range of motion, normal alignment, normal inspection, tenderness Cardiovascular/Respiratory: regular rate, rhythm, no M/R/G, normal peripheral pulses, normal breath sounds, no respiratory distress Gastrointestinal/Abdominal: non tender, soft Back Exam: normal inspection, no CVA tenderness, vertebral tenderness Extremity Exam: no evidence of injury 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 Copy, Patient Portal Self Enrollment Instructions: DI for Trauma Diet: resume usual diet Activity: increase activity as tolerated, walking as tolerated Referrals: Roland Foster MD [Primary Care Provider] - 1-2 Weeks Home Medications: Ambulatory Orders Amiodarone HCl 200 mg PO BID 10/31/18 Aspirin [Aspirin Adult Low Dose] 81 mg PO DAILY 10/31/18 Atorvastatin Calcium [Lipitor] 10 mg PO BEDTIME 10/31/18 Clopidogrel Bisulfate 75 mg PO DAILY 10/31/18 Ferrous Sulfate 325 mg PO BID 10/31/18 Furosemide 40 mg PO DAILY 10/31/18 Polyethylene Glycol 3350 [Miralax] 17 gm PO BID PRN 10/31/18 Folic Acid 1 mg PO DAILY #30 tab 11/05/18 Acetaminophen W/ Codeine [Tylenol W/ CODEINE #3] 1 ea PO Q4HR PRN 04/30/19 Acetaminophen [Tylenol] 650 mg PO Q6HRS PRN 04/30/19 Carboxymethylcellulose-Hyprome [Genteal] 1 applic BOTH_EYES TID 04/30/19 Cetirizine HCl [Zyrtec Allergy] 10 mg PO DAILY 04/30/19 Docusate Sodium [Colace Cap] 100 mg PO BID 04/30/19 Magnesium Hydroxide [Milk Of Magnesia] 30 ml PO DAILY PRN 04/30/19 Metoprolol Succinate [Metoprolol Succinate ER] 25 mg PO DAILY 04/30/19 Mineral Oil/Petrolatum Ophth [Refresh Lacri-Lube] 1 applic BOTH_EYES BEDTIME 04/30/19 Ondansetron [Ondansetron Odt] 4 mg PO Q4HR PRN 04/30/19 Potassium Chloride [Potassium Chloride ER] 20 meq PO DAILY 04/30/19 Tramadol HCl 50 mg PO Q4HR PRN 04/30/19
[2019-05-10 22:36] VITALS: TEMP 97.9; O2SAT 100
[2019-05-10 22:55] VITALS: BP 109/50
== END 2019-05-10 22:57 ==
LOC: ER 20:01
DX: R51 Headache (principal); M54.9 Dorsalgia, unspecified; M25.552 Pain in left hip; M54.2 Cervicalgia; M47.812 Spondylosis without myelopathy or radiculopathy, cervical region; M47.817 Spondylosis without myelopathy or radiculopathy, lumbosacral region; M47.814 Spondylosis without myelopathy or radiculopathy, thoracic region; R42 Dizziness and giddiness; I50.9 Heart failure, unspecified; I11.0 Hypertensive heart disease with heart failure; E11.9 Type 2 diabetes mellitus without complications; K21.9 Gastro-esophageal reflux disease without esophagitis; E85.9 Amyloidosis, unspecified; Z96.642 Presence of left artificial hip joint; Z95.1 Presence of aortocoronary bypass graft; Z86.74 Personal history of sudden cardiac arrest; Z79.899 Other long term (current) drug therapy; Z79.82 Long term (current) use of aspirin

== ENCOUNTER 2019-05-11 07:46 | Observation (INO) | payer MEDICARE ==
[2019-05-11] MEDS ORDERED: SODIUM CHLORIDE 0.9% 500ML 500 ML IVS ONE (08:15)
[2019-05-11] MEDS ORDERED: ACETAMINOPHEN 500 MG TAB PO ONE (08:15)
--- NOTE | 2019-05-11 08:23 | ED.PDOC ---
History of Present Illness - General Chief Complaint: Neuro Symptoms/Deficits Stated Complaint: Altered mental status Time Seen by Provider: 05/11/19 07:54 - History of Present Illness Initial Comments: 88 M +pmh with DRN and son as MPA presents via EMS to ED from nursing care facility for reported AMS. Pt was already seen in ED earlier this morning s/p fall. Due to pt's comorbidities, anticoagulation, and h/o left hip arthroplasty, he was jennings scanned and found with no acute findings. Pt was discharged back to RN care facility at mental baseline; h/o dementia. Upon pt arrival to ED, EMS reports pt has been at baseline since they picked him up with no signs of AMS; they are the same team that transported him previously tonight. Despite medical clearance, EMS reports RN care facility is concerned requesting re-examination because he is having dizziness, on anticoagulation, and with fall tonight. Pt states dizziness is resolved and only is c/o mild generalized headache and unchanged chronic neck/back pain. He also endorses recent darkening in urine color. Denies any current CP, SOB, abd pain, vision change. Chronic LLE swelling is unchanged since left hip arthroplasty. Allergies/Adverse Reactions: Allergies NO KNOWN ALLERGY Allergy (Verified 04/30/19 04:03) Home Medications: Ambulatory Orders Amiodarone HCl 200 mg PO DAILY 10/31/18 Atorvastatin Calcium [Lipitor] 10 mg PO BEDTIME 10/31/18 Clopidogrel Bisulfate 75 mg PO DAILY 10/31/18 Ferrous Sulfate 325 mg PO BID 10/31/18 Polyethylene Glycol 3350 [Miralax] 17 gm PO BID PRN 10/31/18 Folic Acid 1 mg PO DAILY #30 tab 11/05/18 Acetaminophen W/ Codeine [Tylenol W/ CODEINE #3] 1 ea PO Q4HR PRN 04/30/19 Acetaminophen [Tylenol] 650 mg PO Q6HRS PRN 04/30/19 Carboxymethylcellulose-Hyprome [Genteal] 1 applic BOTH_EYES TID 04/30/19 Docusate Sodium [Colace Cap] 100 mg PO BID 04/30/19 Magnesium Hydroxide [Milk Of Magnesia] 30 ml PO DAILY PRN 04/30/19 Metoprolol Succinate [Metoprolol Succinate ER] 25 mg PO DAILY 04/30/19 Mineral Oil/Petrolatum Ophth [Refresh Lacri-Lube] 1 applic BOTH_EYES BEDTIME 04/30/19 Ondansetron [Ondansetron Odt] 4 mg PO Q4HR PRN 04/30/19 Tamsulosin HCl [Flomax] 0.4 mg PO DAILY 05/11/19 Review of Systems - Review of Systems Constitutional: Denies: chills, diaphoresis, fever EENTM: Denies: blurred vision, double vision Respiratory: Denies: cough, short of breath Cardiology: States: edema. Denies: chest pain, palpitations, syncope Gastrointestinal/Abdominal: Denies: abdominal pain, constipation, diarrhea, nausea, vomiting Genitourinary: Denies: dysuria, frequency Musculoskeletal: Denies: back pain, joint pain, muscle pain Skin: Denies: change in color, rash Neurological: States: other - dizziness reported for presentation but denies upon arrival. Denies: headache Unable to Obtain Due To: other - positive history of dementia but does not appear to be limiting to examination Past Medical History (General) - Patient Medical History Hx Seizures: No Hx Stroke: Yes - Hx TIAs Hx Dementia: No Hx Asthma: No Hx of COPD: Yes - amyloidosis Hx Cardiac Disorders: Yes - Hyperlipidemia; cardiomyopathy; Hx NH Hx Congestive Heart Failure: No Hx Pacemaker: No Hx Hypertension: Yes Hx Thyroid Disease: No Hx Diabetes: Yes Hx Gastroesophageal Reflux: Yes Hx Renal Disease: No Hx Cancer: No Hx of HIV: No Hx Hepatitis C: No Hx MRSA: No - Vaccination History Hx Tetanus, Diphtheria Vaccination: No Hx Influenza Vaccination: Yes Hx Pneumococcal Vaccination: - unknown - Social History Hx Tobacco Use: No - unknown unable to obtain information Hx Alcohol Use: No Hx Substance Use: No Hx Physical Abuse: No Hx Emotional Abuse: No - Activities of Daily Living [facility] applicable[facility]:: [facility] Family Medical History - Family History Mother Family History: Unknown Living Status: Unknown Physical Exam - Physical Exam General Appearance: Alert, Other - oriented to person and place and appears at baseline with history of dementia Eye Exam: bilateral normal Ears, Nose, Throat: normal ENT inspection Neck: full range of motion, supple Respiratory: lungs clear, normal breath sounds, no respiratory distress, no accessory muscle use Cardiovascular/Chest: normal peripheral pulses, regular rate, rhythm, no edema, no JVD, no murmur Gastrointestinal/Abdominal: normal bowel sounds, non tender, soft Back Exam: no CVA tenderness, no vertebral tenderness Extremity: non-tender, other - left lower extremity 1+ pitting edema Neurologic: diet aid II-XII nml as tested, no motor/sensory deficits, alert, normal mood/affect Skin Exam: normal color, warm/dry, other - no rash Progress - Progress Progress: patient repeats for second time this morning with new complaint of dizziness and reported altered mentation. Patient presents without any change in mentation and denies any dizziness. Due to complaints in earlier. I will go ahead and perform labs, EKG, provide appropriate pharmacotherapy as indicated, and continue monitor/process. Disposition will depend on labs, EKG, and patient's clinical course in ED. Initial EKG at 823 read by me at 829 normal sinus rhythm at 64 with HI prolongation at 218 QRS prolongation at 112 with a left axis deviation, no ST elevation/depression's with nonspecific ST-T wave changes and significant justyn fact. No STEMI. Repeat EKG at 837 red and 839 sinus rhythm at 63 with first-degree AV block and HI interval of 224, QRS prolongation of 136, QT/QTC prolongation of 522/534, nonspecific ST-T wave changes. No STEMI. Compared with 04/30/19 EKG showing trace increase ST depression in lead 1 with new T-wave inversion in V3 - Results/Orders Results/Orders: 05/11/19 08:15 EKG STAT 05/11/19 09:26 ED Intent to Admit Routine Laboratory Results - last 24 hr 05/11/19 05/11/19 05/11/19 08:48 08:48 08:50 WBC 8.4 RBC 2.63 L Hgb 9.0 L Hct 27.2 L MCV 103.4 H MCH 34.3 H MCHC 33.2 RDW 23.5 H Plt Count 151 MPV 10.0 Absolute Neuts (auto) Not Reportable Absolute Lymphs (auto) Not Reportable Absolute Monos (auto) Not Reportable Absolute Eos (auto) Not Reportable Neutrophils % Not Reportable Neutrophils % (Manual) 72.0 Lymphocytes % Not Reportable Lymphocytes % (Manual) 17.0 Monocytes % Not Reportable Monocytes % (Manual) 11.0 Eosinophils % Not Reportable Basophils % Not Reportable RBC Morphology Stain quality accept Sodium 139 Potassium 4.8 Chloride 104 Carbon Dioxide 25 Anion Gap 14.8 BUN 31 H Creatinine 1.43 H BUN/Creatinine Ratio 21.7 H Random Glucose 102 Serum Osmolality 284.3 Calcium 8.2 L Magnesium 2.1 Total Bilirubin 2.2 H* AST 181 H ALT 139 H Alkaline Phosphatase 93 Troponin I 0.06 H Serum Total Protein 5.7 L Albumin 3.0 L Globulin 2.7 Albumin/Globulin Ratio 1.1 Urine Color Urine Appearance Urine pH Ur Specific [place] Urine Protein Urine Glucose (UA) Urine Ketones Urine Blood Urine Nitrite Urine Bilirubin Urine Urobilinogen Ur Leukocyte Esterase Urine RBC Urine WBC Ur Epithelial Cells Urine Bacteria 05/11/19 05/11/19 10:17 10:35 WBC RBC Hgb Hct MCV MCH MCHC RDW Plt Count MPV Absolute Neuts (auto) Absolute Lymphs (auto) Absolute Monos (auto) Absolute Eos (auto) Neutrophils % Neutrophils % (Manual) Lymphocytes % Lymphocytes % (Manual) Monocytes % Monocytes % (Manual) Eosinophils % Basophils % RBC Morphology Sodium Potassium Chloride Carbon Dioxide Anion Gap BUN Creatinine BUN/Creatinine Ratio Random Glucose Serum Osmolality Calcium Magnesium Total Bilirubin AST ALT Alkaline Phosphatase Troponin I 0.06 H Serum Total Protein Albumin Globulin Albumin/Globulin Ratio Urine Color Yellow Urine Appearance Clear Urine pH 6.0 Ur Specific [place] 1.020 Urine Protein 30 Urine Glucose (UA) Negative Urine Ketones Trace Urine Blood Negative Urine Nitrite Negative Urine Bilirubin Small H Urine Urobilinogen 4.0 H Ur Leukocyte Esterase Negative Urine RBC 0 Urine WBC 0-1 Ur Epithelial Cells 0-1 Urine Bacteria 0 Departure - Departure Clinical Impression: NSTEMI (non-ST elevated myocardial infarction), Dizziness Fall Qualifiers: Encounter type: subsequent encounter Qualified Code(s): W19.XXXD - Unspecified fall, subsequent encounter Headache Qualifiers: Headache type: unspecified Headache chronicity pattern: acute headache Intractability: not intractable Qualified Code(s): R51 - Headache Time of Disposition: 10:36 Disposition: Admit Patient Condition: Fair Home Medications: Ambulatory Orders Amiodarone HCl 200 mg PO DAILY 10/31/18 Atorvastatin Calcium [Lipitor] 10 mg PO BEDTIME 10/31/18 Clopidogrel Bisulfate 75 mg PO DAILY 10/31/18 Ferrous Sulfate 325 mg PO BID 10/31/18 Polyethylene Glycol 3350 [Miralax] 17 gm PO BID PRN 10/31/18 Folic Acid 1 mg PO DAILY #30 tab 11/05/18 Acetaminophen W/ Codeine [Tylenol W/ CODEINE #3] 1 ea PO Q4HR PRN 04/30/19 Acetaminophen [Tylenol] 650 mg PO Q6HRS PRN 04/30/19 Carboxymethylcellulose-Hyprome [Genteal] 1 applic BOTH_EYES TID 04/30/19 Docusate Sodium [Colace Cap] 100 mg PO BID 04/30/19 Magnesium Hydroxide [Milk Of Magnesia] 30 ml PO DAILY PRN 04/30/19 Metoprolol Succinate [Metoprolol Succinate ER] 25 mg PO DAILY 04/30/19 Mineral Oil/Petrolatum Ophth [Refresh Lacri-Lube] 1 applic BOTH_EYES BEDTIME 04/30/19 Ondansetron [Ondansetron Odt] 4 mg PO Q4HR PRN 04/30/19 Tamsulosin HCl [Flomax] 0.4 mg PO DAILY 05/11/19 Decision To Admit - Decistion To Admit Decision to Admit Reason: Admit from ER Decision to Admit Date: 05/11/19 Decision to Admit Time: 09:22
--- NOTE | 2019-05-11 11:27 | HP ---
SUPERVISING PHYSICIAN: Viviane Otoole MD CHIEF COMPLAINT: Altered mental status with vague cardiac symptoms. HISTORY OF PRESENT ILLNESS: This is an 88-year-old male patient who is a DNR. He lives at [facility] and had been to the Emergency Room earlier in the day due to a same-level fall. At that time, he had a complete workup that showed no acute findings. The patient was sent back to [facility]. He was later brought back to the hospital due to altered mental status. By the time he returned to the Emergency Room, he had reached his baseline. Because of the patient's comorbidities, he had a further workup while in the Emergency Room. His initial vital signs showed temperature 97.5, heart rate 67, blood pressure 123/59, respiratory rate 20, O2 saturation 90% on room air. His laboratory studies showed WBCs 8.4, hemoglobin 9, hematocrit 27.2. His electrolytes were basically within normal limits with slightly low calcium of 8.2. AST was elevated at 181, ALT was 139. BUN 31, creatinine 1.43. Initial cardiac enzymes noted troponin 0.06 with followup troponin of 0.06. Urinalysis was basically unremarkable. Due to his comorbidities as well as his recent fall as well as the vague cardiac symptoms, he was admitted to the hospital for observation. PAST MEDICAL HISTORY: 1. 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 2. Multiple cardiac stents. 3. Renal insufficiency. 4. Congestive heart failure, systolic in etiology with ejection fraction of 25%. 5. History of previous cardiac arrest. PAST SURGICAL HISTORY: 1. 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 2. Appendectomy. 3. Femoral stents. 4. Left nephrectomy. 5. Cholecystectomy. OUTPATIENT MEDICATIONS: 1. Acetaminophen. 2. Milk of Magnesia. 3. Polyethylene glycol. 4. Acetaminophen with codeine. 5. Amiodarone. 6. Atorvastatin. 7. Carboxymethyl cellulose. 8. Plavix. 9. Docusate sodium. 10. Ferrous sulfate. 11. Folic acid. 12. Metoprolol. 13. Refresh Lacri-Lube 14. Zofran. 15. Tamsulosin. SOCIAL HISTORY: He lives at [facility]. He is . He quit smoking many years ago. There is no history of illicit drug use. REVIEW OF SYSTEMS: Unable to obtain due to the patient's mental status. PHYSICAL EXAMINATION: VITAL SIGNS: Temperature 97.7. Heart rate 62. Blood pressure 111/67. Respiratory rate 16. O2 saturation 99% on 1 liter nasal cannula. GENERAL: This is an 88-year-old male patient who is lying in his hospital bed. He is in no acute distress. HEENT: Normocephalic, atraumatic. Pupils are equal and reactive. Oropharynx is clear. NECK: Supple without mass. RESPIRATORY: Essentially clear to auscultation bilaterally. CARDIOVASCULAR: Regular rate and rhythm. GASTROINTESTINAL: Abdomen is soft, nondistended, nontender. Bowel sounds are positive. EXTREMITIES: No cyanosis, clubbing or edema. NEUROLOGIC: Awake, but slightly confused. He does answer a few simple yes/no questions without difficulty. SKIN: Warm and dry. LABORATORY: As per the history of present illness. IMPRESSION: 1. Altered mental status with dizziness, although his mental status returned to baseline in the Emergency Room. 2. [facility] with full [facility] workup and negative results. 3. Chest pain, rule out acute coronary syndrome. The patient had very vague cardiac symptoms. 4. Renal insufficiency. 5. Congestive heart failure, systolic in etiology with ejection fraction of 25%. PLAN: The patient has been admitted to the hospital and placed in observation. He is a DNR. We will repeat his cardiac enzymes. We will repeat his lab in the morning. Chest pain guidelines have been started. Hopefully he can be discharged tomorrow back to the prison. #[id number]
[2019-05-11] MEDS ORDERED: NITROGLYCERIN 0.4 MG 25 EA TAB SL PRN (14:20)
[2019-05-11] MEDS ORDERED: ACETAMINOPHEN 325 MG TAB PO PRN (14:20)
[2019-05-11] MEDS ORDERED: SODIUM CHLORIDE 0.9% (FLUSH) 10 ML SYG IV PRN (14:20)
[2019-05-11] MEDS ORDERED: ONDANSETRON ODT 8 MG TAB PO PRN (14:24)
[2019-05-11] MEDS ORDERED: IV SET AND CAP CHANGE INJ INJ SCH (14:30)
[2019-05-11] MEDS ORDERED: SODIUM CHLORIDE 0.45% 1000ML 1,000 ML IVS ONE (14:44)
[2019-05-11] MEDS: FERROUS SULFATE 325 MG TAB PO SCH (15:26)
[2019-05-11] MEDS: [UNRECOGNIZED DRUG - OTHER] BOTH_EYES SCH ×2 (15:26→20:17)
[2019-05-11] MEDS ORDERED: PANTOPRAZOLE SODIUM TAB 40 MG PO ONE (19:11)
[2019-05-11] MEDS: MINERAL OIL/PETROLATUM OPHTH OINT 1 APPLIC UD BOTH_EYES SCH (20:16)
[2019-05-11] MEDS: DOCUSATE SODIUM 100 MG CAP PO SCH (20:16)
[2019-05-11] MEDS: ATORVASTATIN 10 MG TAB PO SCH (20:16)
[2019-05-11] MEDS: SODIUM CHLORIDE 0.9% (FLUSH) 10 ML SYG IV SCH (20:17)
[2019-05-12] MEDS: ACETAMINOPHEN W/COD #3 TAB 1 EA TAB PO PRN ×2 (00:26→21:23)
[2019-05-12] MEDS: PANTOPRAZOLE SODIUM TAB 40 MG PO SCH (06:41)
[2019-05-12] MEDS: FERROUS SULFATE 325 MG TAB PO SCH ×2 (08:24→16:40)
[2019-05-12] MEDS: AMIODARONE HCL 200 MG TAB PO SCH (08:24)
[2019-05-12] MEDS: METOPROLOL SUCCINATE XL 25 MG TAB PO SCH (08:24)
[2019-05-12] MEDS: TAMSULOSIN 0.4 MG CAP PO SCH (08:24)
[2019-05-12] MEDS: DOCUSATE SODIUM 100 MG CAP PO SCH ×2 (08:24→20:42)
[2019-05-12] MEDS: CLOPIDOGREL 75 MG TAB PO SCH (08:24)
[2019-05-12] MEDS: FOLIC ACID 1 MG TAB PO SCH (08:24)
[2019-05-12] MEDS: SODIUM CHLORIDE 0.9% (FLUSH) 10 ML SYG IV SCH ×2 (08:25→20:43)
[2019-05-12] MEDS: [UNRECOGNIZED DRUG - OTHER] BOTH_EYES SCH ×3 (11:21→20:42)
[2019-05-12] MEDS: ATORVASTATIN 10 MG TAB PO SCH (20:42)
[2019-05-12] MEDS: MINERAL OIL/PETROLATUM OPHTH OINT 1 APPLIC UD BOTH_EYES SCH (20:43)
--- NOTE | 2019-05-12 22:20 | PN ---
DATE: 05/12/19 SUPERVISING PHYSICIAN: Jonah Otoole M.D. SUBJECTIVE: The patient is lying in bed. Earlier in the shift he had been on the bedside commode and had a very large bowel movement. 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 He was breathing very shallowly and was unresponsive but after a few minutes he did respond. His vital signs normalized. Since that time he is still very confused but he will answer some simple questions. He is back to his baseline. OBJECTIVE: VITAL SIGNS: Temperature 97.8, heart rate 59, blood pressure 118/67, respiratory rate 16, O2 sat 95% on 2 liters nasal cannula. RESPIRATORY: Diminished at the bases with shallow respirations. CARDIAC: Regular rate and rhythm. GASTROINTESTINAL: Abdomen is soft, nondistended, non-tender. Bowel sounds are positive. NEUROLOGIC: He awakens easily. He does answer simple yes/no questions but he is confused. LABORATORY: WBCs are 8, hemoglobin 8.9, hematocrit 27.2. He does have a left shift on his differential. Cardiac enzymes were basically negative, although his troponins are elevated, but unchanged. They are 0.06. Electrolytes are basically within normal limits. Creatinine has improved some to 1.33, calcium is low at 7.8. All other labs and films have been reviewed via the EMR. ASSESSMENT: 1. Altered mental status with dizziness, although his mental status returned to baseline in the Emergency Room. 2. Recent same-level fall at the group home with full radiology workup and negative results. 3. Chest pain, rule out acute coronary syndrome. The patient had very vague cardiac symptoms. 4. Renal insufficiency, chronic, that has slightly improved. 5. Congestive heart failure, systolic in etiology with ejection fraction of 25%. PLAN: Will continue to monitor the patient overnight. He most likely can go back to [facility] tomorrow. His earlier episode was most likely due to a vasovagal maneuver. He has had no further problems. At this point he is mostly at baseline. Unless he changes clinically overnight he should be able to go back to the group home tomorrow. [id number] [facility]
[2019-05-13] MEDS: PANTOPRAZOLE SODIUM TAB 40 MG PO SCH (06:14)
[2019-05-13] MEDS: TAMSULOSIN 0.4 MG CAP PO SCH (08:06)
[2019-05-13] MEDS: FERROUS SULFATE 325 MG TAB PO SCH (08:06)
[2019-05-13] MEDS: AMIODARONE HCL 200 MG TAB PO SCH (08:06)
[2019-05-13] MEDS: DOCUSATE SODIUM 100 MG CAP PO SCH (08:06)
[2019-05-13] MEDS: METOPROLOL SUCCINATE XL 25 MG TAB PO SCH (08:06)
[2019-05-13] MEDS: FOLIC ACID 1 MG TAB PO SCH (08:07)
[2019-05-13] MEDS: SODIUM CHLORIDE 0.9% (FLUSH) 10 ML SYG IV SCH (08:10)
[2019-05-13] MEDS: CLOPIDOGREL 75 MG TAB PO SCH (08:10)
[2019-05-13] MEDS: [UNRECOGNIZED DRUG - OTHER] BOTH_EYES SCH (08:10)
[2019-05-13 09:16] VITALS: O2SAT 93
--- NOTE | 2019-05-13 09:24 | DS ---
SUPERVISING PHYSICIAN: Viviane Otoole MD DISCHARGE DIAGNOSIS: 1. Altered mental status with dizziness, although his mental status returned to baseline in the Emergency Room. 2. Recent same-level fall at the snf with full radiology workup and negative results. 3. Chest pain, rule out acute coronary syndrome. The patient had very vague cardiac symptoms with a slightly elevated troponin of 0.06, may be due his renal insufficiency and congestive heart failure as he has had no signs or symptoms of chest pain or EKG changes. 4. Renal insufficiency, chronic, slightly improved. 5. Congestive heart failure, systolic in etiology with ejection fraction of 25%. HISTORY OF PRESENT ILLNESS: This is an 88-year-old male patient who came to the Emergency Room from [facility] on the date of admission. He had been to the Emergency Room earlier due to a same-level fall with contusion on his face as well as his left upper eye. He had a full radiology workup with no fractures. His contusion was Steri-Stripped on his eye and was sent back to [facility]. He was later brought back to the Emergency Room due to altered mental status. By the time he presented to the Emergency Room, he had reached his baseline. He has multiple comorbidities including renal insufficiency and congestive heart failure. His initial vital signs in the Emergency Room showed temperature 97.5, heart rate 67, blood pressure 123/59, respiratory rate 20, O2 saturation 90% on room air. His laboratory studies showed WBCs 8.4, hemoglobin 9, hematocrit 27.2. His electrolytes were basically within normal limits with slightly low calcium of 8.2. AST was elevated at 181, ALT was 139. BUN 31, creatinine 1.43. Initial cardiac enzymes showed troponin 0.06 with followup troponin of 0.06. Urinalysis was basically unremarkable. He was placed in observation in the hospital. HOSPITAL COURSE: Serial cardiac enzymes were continued. Chest pain guidelines were started. Neuro checks were also done. His labs reached baseline. Yesterday, he was up to the bedside commode. After assisting the patient to bed, he became unresponsive and most likely a vasovagal response. 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 Initially, he was totally unresponsive, but after a few minutes, his vital signs stabilized and again his mental status was at baseline. He was observed overnight. He has had no acute changes. The patient is a DNR. He has had no complaints of chest pain. His troponins remained stable at 0.06 most likely due to his renal insufficiency as well as his congestive heart failure and he will be discharged back to [facility] in stable condition. LABORATORY: WBCs remained stable at 8. Hemoglobin 8.9, hematocrit 27.2. Electrolytes are basically within normal limits with the exception of slightly low calcium at 7.8. BUN came down to 29 and his creatinine was 1.33. Baseline creatinine about 1.8. DISCHARGE PLAN: The patient will be discharged to [facility] in stable condition. He is to resume his previous diet as well as increase his activity as tolerated. He is to followup with Dr. Foster, his primary care physician, in 1 to 2 weeks. He is to resume his previous medications. No new additional medications have been started. He is to return to the hospital or followup with Dr. Foster for any problems or complications. DISCHARGE MEDICATIONS: 1. Atorvastatin. 2. Polyethylene glycol. 3. Ferrous sulfate. 4. Plavix. 5. Amiodarone. 6. Folic acid. 7. Mineral oil/petrolatum ophthalmic. 8. Ondansetron. 9. Magnesium hydroxide. 10. Metoprolol. 11. Docusate sodium. 12. Acetaminophen. 13. Acetaminophen with codeine. 14. Genteal ophthalmic. 15. Tamsulosin. [facility][id number] [facility]
[2019-05-13 10:16] VITALS: BP 113/56; TEMP 97
== END 2019-05-13 10:34 ==
LOC: ER 07:46 → MS 11:25
PROVIDERS: ADMIT Nurse Practitioner Acute Care; ATTEND Nurse Practitioner Acute Care
DX: R41.82 Altered mental status, unspecified (principal); R42 Dizziness and giddiness; R07.89 Other chest pain; E83.51 Hypocalcemia; I13.0 Hypertensive heart and chronic kidney disease with heart failure and stage 1 through stage 4 chronic kidney disease, or unspecified chronic kidney disease; E11.22 Type 2 diabetes mellitus with diabetic chronic kidney disease; N18.9 Chronic kidney disease, unspecified; I50.20 Unspecified systolic (congestive) heart failure; I44.0 Atrioventricular block, first degree; E78.5 Hyperlipidemia, unspecified; I42.9 Cardiomyopathy, unspecified; K21.9 Gastro-esophageal reflux disease without esophagitis; J44.9 Chronic obstructive pulmonary disease, unspecified; Z66 Do not resuscitate; Z79.02 Long term (current) use of antithrombotics/antiplatelets; Z79.899 Other long term (current) drug therapy; Z91.81 History of falling; Z95.1 Presence of aortocoronary bypass graft; Z95.5 Presence of coronary angioplasty implant and graft; Z86.74 Personal history of sudden cardiac arrest; Z95.828 Presence of other vascular implants and grafts; Z90.5 Acquired absence of kidney; Z86.73 Personal history of transient ischemic attack (TIA), and cerebral infarction without residual deficits; Z87.891 Personal history of nicotine dependence; Z90.49 Acquired absence of other specified parts of digestive tract
CPT/HCPCS: J7799; J7040; 80048; 82553 ×2; 80053; 80061; 36415 ×5; 81001; 85025 ×2; 82550 ×2; 85007; 83735; 84484 ×4; 94760 ×5; 99285; 93005 ×3; G0378